=== PATIENT | female | born 1935 | race Caucasian/White ===

== ENCOUNTER 2016-08-01 16:00 | Outpatient (CLI) | payer MEDICARE, OTHER | END 2016-08-01 16:01 | disposition home or self-care (01) | DX: M51.36 Other intervertebral disc degeneration, lumbar region (principal); M47.816 Spondylosis without myelopathy or radiculopathy, lumbar region; M43.16 Spondylolisthesis, lumbar region; M48.54XA Collapsed vertebra, not elsewhere classified, thoracic region, initial encounter for fracture ==

== ENCOUNTER 2016-09-17 13:23 | Outpatient (CLI) | payer MEDICARE, OTHER | END 2016-09-17 13:24 | DX: R30.0 Dysuria (principal) ==

== ENCOUNTER 2016-11-11 11:40 | Outpatient (CLI) | payer MEDICARE, OTHER | END 2016-11-11 11:41 | disposition home or self-care (01) | LOC: LAB.R 11:40 | PROVIDERS: ATTEND Internal Medicine | DX: N30.00 Acute cystitis without hematuria (principal) | CPT/HCPCS: 87077; 87086 ==

== ENCOUNTER 2017-04-30 14:32 | Outpatient (CLI) | payer MEDICARE, OTHER ==
[2017-04-30 13:40] LABS: BASOPHILS # (AUTO) 0.1 10^3/uL (0.0-0.1); BASOPHILS % (AUTO) 1.5 %; EOSINOPHILS # (AUTO) 0.2 10^3/uL (0.0-0.7); EOSINOPHILS % (AUTO) 3.6 %; HCT - HEMATOCRIT 38.9 % (37.0-47.0); HGB - HEMOGLOBIN 13.1 g/dL (12.0-16.0); LYMPHOCYTES # (AUTO) 1.4 10^3/uL (1.5-3.5); LYMPHOCYTES % (AUTO) 29.2 %; MEAN CORPUSCULAR HEMOGLOBIN 30.9 pg (27.0-31.0); MEAN CORPUSCULAR HGB CONC 33.7 g/dL (32.0-36.0); MEAN CORPUSCULAR VOLUME 91.7 fL (81.0-99.0); MEAN PLATELET VOLUME 9.2 fL (7.9-10.8); MONOCYTES # (AUTO) 0.5 10^3/uL (0.0-1.0); NEUTROPHILS # (AUTO) 2.7 10^3/uL (1.5-6.6); NEUTROPHILS % (AUTO) 54.7 %; RED BLOOD COUNT 4.24 10^6/uL (4.20-5.40); RED CELL DISTRIBUTION WIDTH 13.7 % (12.0-15.0); UNCORRECTED WHITE BLOOD COUNT 4.9 x10^3/uL; WHITE BLOOD COUNT 4.9 x10^3/uL (4.8-10.8)
[2017-04-30 13:44] LABS: ALBUMIN/GLOBULIN RATIO 1.2 (1.0-2.2); BILIRUBIN,TOTAL 0.8 mg/dL (0.2-1.0); CALCIUM 9.7 mg/dL (8.5-10.3); CREATININE 0.9 mg/dL (0.4-1.0); POTASSIUM 4.1 mmol/L (3.5-5.0); TOTAL PROTEIN 6.9 g/dL (6.7-8.2)
== END 2017-04-30 14:33 | disposition home or self-care (01) ==
LOC: LAB.R 14:32
PROVIDERS: ATTEND Internal Medicine
DX: K21.9 Gastro-esophageal reflux disease without esophagitis (principal); M19.049 Primary osteoarthritis, unspecified hand; Z79.899 Other long term (current) drug therapy; E03.9 Hypothyroidism, unspecified
CPT/HCPCS: 80053; 84443; 85025

== ENCOUNTER 2017-06-03 11:49 | Emergency (ER) | payer MEDICARE, OTHER ==
--- NOTE | 2017-06-03 13:36 | ED Physician Documentation ---
History of Present Illness - Stated complaint Stated Complaint: DIZZY,NO BALANCE,R ARM ACHE--LAST NIGHT - Chief complaint Chief Complaint: Neuro - History obtained from History obtained from: Patient - History of Present Illness Timing: Last night Pain level max: 2 Pain level now: 0 Improved by: rest Worsened by: standing up - Additonal information Additional information: Patient is an 81-year-old female who presents to the emergency department for lightheadedness last night. She states she slipped out of her chair and felt lightheaded for approximately 30 seconds, resolved when she sat back down in the chair. She then walked down to the library to do her exercises and felt "slightly off balance". Did her exercises including multiple times standing on one leg without any difficulty. She then went to bed and slept for 8 hours, states that this is longer than she normally sleeps. She also states that she had some right shoulder pain this morning, which is not unusual for her, but the arm felt heavy. She also states that she clenches her teeth and that her jaw was sore this morning. Had no chest pain. No shortness of breath. Currently is asymptomatic. She also states that her right eye has an astigmatism in it and she is noticing it more today than usual. No other visual changes. No loss of vision. Review of Systems Ten Systems: 10 systems reviewed and negative Constitutional: denies: Fever, Chills Eyes: denies: Photophobia, Discharge, Irritation Ears: denies: Ear pain Nose: denies: Rhinorrhea / runny nose, Congestion Throat: denies: Sore throat Cardiac: denies: Chest pain / pressure, Palpitations Respiratory: denies: Dyspnea, Cough, Wheezing GI: denies: Abdominal Pain, Nausea, Vomiting, Diarrhea Skin: denies: Rash Musculoskeletal: denies: Neck pain, Back pain Neurologic: denies: Generalized weakness, Focal weakness, Numbness, Confused, Altered mental status, Headache, Head injury, LOC PD PAST MEDICAL HISTORY - Past Medical History Past Medical History: Yes Respiratory: Pneumonia GI: GERD Psych: Depression Musculoskeletal: Osteoarthritis, Osteoporosis - Past Surgical History Past Surgical History: Yes General: 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, 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 - Present Medications Home Medications: Ambulatory Orders Medication Instructions Recorded Confirmed Aspirin Chewable [[place] DAILY 06/03/17 Aspirin] Bupropion HCl [Bupropion HCl Sr] DAILY 06/03/17 Levothyroxine [Synthroid] DAILY 06/03/17 Raloxifene [Evista] DAILY 06/03/17 - Allergies Allergies/Adverse Reactions: Allergies Allergy/AdvReac Type Severity Reaction Status Date / Time codeine Allergy Unknown Verified 06/03/17 11:59 mercury (elemental) Allergy Rash Verified 06/03/17 11:58 - Social History Does the pt smoke?: No Smoking Status: Never smoker Does the pt drink ETOH?: No Does the pt have substance abuse?: No - Immunizations Immunizations are current?: Yes - POLST Patient has POLST: No PD ED PE NORMAL - Vitals Vital signs reviewed: Yes - General General: Alert and oriented X 3, No acute distress, Well developed/nourished - HEENT HEENT: PERRL, EOMI, Ears normal, Moist mucous membranes, Pharynx benign - Neck Neck: Supple, no meningeal sign, No bony TTP, No JVD, No bruit - Cardiac Cardiac: RRR, Strong equal pulses - Respiratory Respiratory: No respiratory distress, Clear bilaterally - Abdomen Abdomen: Normal bowel sounds, Soft, Non tender, Non distended - Back Back: No spinal TTP - Derm Derm: Warm and dry, No rash - Extremities Extremities: No edema, No calf tenderness / cord - Neuro Neuro: Alert and oriented X 3, marketing representative 2-12 intact, No motor deficit, No sensory deficit, Normal speech, Other (normal finger to nose. normal heel toe walk, normal romberg. ) - Psych Psych: Normal mood, Normal affect Results - Vitals Vitals: Vital Signs - 24 hr 06/03/17 06/03/17 12:04 15:06 Temperature 36.7 C Heart Rate 71 70 Respiratory 20 12 Rate Blood Pressure 142/72 H 162/69 H O2 Saturation 98 100 Oxygen O2 Source Room air - EKG (time done) 1222 Rate: Rate (enter#) (66) Rhythm: NSR [place]: Normal Intervals: Normal [place] QRS: Normal Ischemia: Normal ST segments - Labs Labs: Laboratory Tests 06/03/17 06/03/17 06/03/17 13:04 13:04 13:04 WBC 5.3 RBC 4.48 Hgb 13.8 Hct 41.1 MCV 91.6 MCH 30.9 MCHC 33.7 RDW 13.8 Plt Count 204 MPV 8.7 Neut # 2.9 Lymph # 1.6 [place] # 0.5 Eos # 0.1 Baso # 0.2 H Absolute Nucleated RBC 0.00 Nucleated RBC % 0.0 Sodium 138 Potassium 4.3 Chloride 104 Carbon Dioxide 30 Anion Gap 4.0 L BUN 19 Creatinine 0.9 Estimated GFR (MDRD) 60 L Glucose 80 Calcium 9.8 Total Bilirubin 0.6 AST 19 ALT 14 Alkaline Phosphatase 40 L Troponin I < 0.04 Total Protein 7.5 Albumin 4.3 Globulin 3.2 Albumin/Globulin Ratio 1.3 Lipase 25 Urine Color Urine Clarity Urine pH Ur Specific [place] Urine Protein Urine Glucose (UA) Urine Ketones Urine Occult Blood Urine Nitrite Urine Bilirubin Urine Urobilinogen Ur Leukocyte Esterase Ur Microscopic Review Urine Culture Comments 06/03/17 14:00 WBC RBC Hgb Hct MCV MCH MCHC RDW Plt Count MPV Neut # Lymph # [place] # Eos # Baso # Absolute Nucleated RBC Nucleated RBC % Sodium Potassium Chloride Carbon Dioxide Anion Gap BUN Creatinine Estimated GFR (MDRD) Glucose Calcium Total Bilirubin AST ALT Alkaline Phosphatase Troponin I Total Protein Albumin Globulin Albumin/Globulin Ratio Lipase Urine Color YELLOW Urine Clarity CLEAR Urine pH 7.0 Ur Specific [place] 1.010 Urine Protein NEGATIVE Urine Glucose (UA) NEGATIVE Urine Ketones NEGATIVE Urine Occult Blood NEGATIVE Urine Nitrite NEGATIVE Urine Bilirubin NEGATIVE Urine Urobilinogen 0.2 (NORMAL) Ur Leukocyte Esterase NEGATIVE Ur Microscopic Review NOT INDICATED Urine Culture Comments NOT INDICATED - Rads (name of study) head CT Radiology: Prelim report reviewed, EMP read contemporaneously, See rad report ( No acute intracranial abnormality) PD MEDICAL DECISION MAKING - ED course Complexity details: reviewed results, re-evaluated patient, considered differential, d/w patient ED course: Patient is an 81-year-old female with lightheadedness last night, asymptomatic today. Normal cerebellar test. No evidence of posterior circulation stroke. No acute findings on EKG, head CT or laboratory testing. Asymptomatic here. We will have her follow-up with her doctor for further evaluation and care. Does not seem to be related to an ischemic event at this time. Patient counseled regarding signs and symptoms for which I believe and urgent re- evaluation would be necessary. Patient with good understanding of and agreement to plan and is comfortable going home at this time This document was made in part using voice recognition software. While efforts are made to proofread this document, sound alike and grammatical errors may occur. Departure - Departure Disposition: 01 Home, Self Care Clinical Impression: Lightheaded Condition: Good Instructions: ED Dizziness UKO Follow-Up: Narciso Tavera MD [Primary Care Provider] - Within 1 week Comments: Follow up with your doctor for further care. Return if you worsen. Discharge Date/Time: 06/03/17 15:13 NIHSS - Time Time: 13:00 - Level of Consciousness Level of consciousness: (0) Alert, Keenly responsive LOC Questions: (0) Answers both Q's correct LOC Commands: (0) Performs both correctly - Gaze Best Gaze: (0) Normal - Visual Visual: (0) No loss - Facial Palsy Facial Palsy: (0) Normal, symmetrical movement - Motor Arms (both separate) Motor Arm (right): (0) No drift Motor Arm (left): (0) No drift - Motor Legs (both separate) Motor Leg (right): (0) No drift Motor Leg (left): (0) No drift - Limb Ataxia Limb Ataxia: (0) Absent - Sensory Sensory: (0) Normal - Best Language Best Language: (0) No aphasia - Dysarthria Dysarthria: (0) Normal - Extinction and Inattention (formally neg Extinction and inattention: (0) No abnormality - Total Score/Results Total Score/Result: 0
[2017-06-03 13:48] LABS: BASOPHILS # (AUTO) 0.2 10^3/uL (0.0-0.1); BASOPHILS % (AUTO) 2.9 %; EOSINOPHILS # (AUTO) 0.1 10^3/uL (0.0-0.7); EOSINOPHILS % (AUTO) 2.7 %; HGB - HEMOGLOBIN 13.8 g/dL (12.0-16.0); LYMPHOCYTES # (AUTO) 1.6 10^3/uL (1.5-3.5); LYMPHOCYTES % (AUTO) 29.6 %; MEAN CORPUSCULAR HEMOGLOBIN 30.9 pg (27.0-31.0); MEAN CORPUSCULAR HGB CONC 33.7 g/dL (32.0-36.0); MEAN CORPUSCULAR VOLUME 91.6 fL (81.0-99.0); MEAN PLATELET VOLUME 8.7 fL (7.9-10.8); MONOCYTES # (AUTO) 0.5 10^3/uL (0.0-1.0); NEUTROPHILS # (AUTO) 2.9 10^3/uL (1.5-6.6); NEUTROPHILS % (AUTO) 54.8 %; PLT - PLATELET COUNT 204 10^3/uL (130-450); RED BLOOD COUNT 4.48 10^6/uL (4.20-5.40); RED CELL DISTRIBUTION WIDTH 13.8 % (12.0-15.0); WHITE BLOOD COUNT 5.3 x10^3/uL (4.8-10.8)
[2017-06-03 13:59] LABS: ALBUMIN 4.3 g/dL (3.2-5.5); ALBUMIN/GLOBULIN RATIO 1.3 (1.0-2.2); BILIRUBIN,TOTAL 0.6 mg/dL (0.2-1.0); CALCIUM 9.8 mg/dL (8.5-10.3); CREATININE 0.9 mg/dL (0.4-1.0); TOTAL PROTEIN 7.5 g/dL (6.7-8.2)
[2017-06-03 14:12] LABS: BILIRUBIN,URINE NEGATIVE (NEGATIVE); GLUCOSE, URINE (UA) NEGATIVE (NEGATIVE); KETONES,URINE (UA) NEGATIVE (NEGATIVE); LEUKOCYTE ESTERASE, URINE NEGATIVE (NEGATIVE); NITRITE,URINE NEGATIVE (NEGATIVE); OCCULT BLOOD,URINE NEGATIVE (NEGATIVE); PROTEIN,URINE NEGATIVE (NEGATIVE); UROBILINOGEN,URINE 0.2 (NORMAL) E.U./dL (NORMAL)
[2017-06-03 14:15] LABS: CLARITY,URINE CLEAR (CLEAR)
--- NOTE | 2017-06-03 14:33 | CT Report ---
EXAM: CT HEAD EXAM DATE: 06/03/2017 02:18 PM. CLINICAL HISTORY: Lightheaded last night, off balance. COMPARISON: None. TECHNIQUE: Multiaxial CT images were obtained from the foramen magnum to the vertex. Reformats: Coron al. IV contrast: None. In accordance with CT protocol optimization, one or more of the following dose reduction techniques w ere utilized for this exam: automated exposure control, adjustment of mA and/or KV based on patient s ize, or use of iterative reconstructive technique. FINDINGS: Parenchyma: No intraparenchymal hemorrhage. No evidence of mass, midline shift, or CT findings of acu te infarction. Mar-white differentiation is distinct. Diffuse chronic microangiopathic white matter changes are evident. Extraaxial Spaces: Normal for age. No subdural or epidural collections identified. Ventricles: The ventricles and cortical sulci are enlarged, consistent with age-related tissue loss. Sinuses and orbits: Imaged paranasal sinuses, orbits, and mastoids show no significant abnormality. Bones: No evidence of fracture or calvarial defect. Other: None. IMPRESSION: Generalized age-related cortical atrophic changes without evidence of acute intracranial abnormality. [facility] Referring Provider Line: [phone] SITE ID: [id number]
[2017-06-03 15:07] VITALS: BP 162/69
== END 2017-06-03 15:13 | disposition home or self-care (01) ==
LOC: ED 11:49
DX: R42 Dizziness and giddiness (principal); R94.31 Abnormal electrocardiogram [ECG] [EKG]; Z79.82 Long term (current) use of aspirin
CPT/HCPCS: 36415; 70450; 80053; 81001; 81003; 83690; 84484; 85025; 87086; 93005; 99283; 99284

== ENCOUNTER 2017-10-28 08:00 | Outpatient (CLI) | payer MEDICARE, OTHER ==
[2017-10-28 17:42] LABS: BASOPHILS # (AUTO) 0.1 10^3/uL (0.0-0.1); BASOPHILS % (AUTO) 1.3 %; EOSINOPHILS # (AUTO) 0.1 10^3/uL (0.0-0.7); EOSINOPHILS % (AUTO) 2.6 %; HGB - HEMOGLOBIN 13.3 g/dL (12.0-16.0); LYMPHOCYTES # (AUTO) 1.5 10^3/uL (1.5-3.5); LYMPHOCYTES % (AUTO) 27.6 %; MEAN CORPUSCULAR HEMOGLOBIN 30.4 pg (27.0-31.0); MEAN CORPUSCULAR HGB CONC 33.1 g/dL (32.0-36.0); MEAN CORPUSCULAR VOLUME 91.8 fL (81.0-99.0); MEAN PLATELET VOLUME 9.3 fL (7.9-10.8); MONOCYTES # (AUTO) 0.6 10^3/uL (0.0-1.0); MONOCYTES % (AUTO) 11.8 %; NEUTROPHILS # (AUTO) 3.1 10^3/uL (1.5-6.6); NEUTROPHILS % (AUTO) 56.7 %; PLT - PLATELET COUNT 210 10^3/uL (130-450); RED BLOOD COUNT 4.38 10^6/uL (4.20-5.40); WHITE BLOOD COUNT 5.5 x10^3/uL (4.8-10.8)
[2017-10-28 17:55] LABS: ALBUMIN 3.8 g/dL (3.2-5.5); ALBUMIN/GLOBULIN RATIO 1.1 (1.0-2.2); BILIRUBIN,TOTAL 0.4 mg/dL (0.2-1.0); CALCIUM 9.8 mg/dL (8.5-10.3); CREATININE 0.9 mg/dL (0.4-1.0); TOTAL PROTEIN 7.4 g/dL (6.7-8.2)
== END 2017-10-28 08:01 | disposition home or self-care (01) ==
LOC: LAB.R 08:00
PROVIDERS: ATTEND Internal Medicine
DX: R10.9 Unspecified abdominal pain (principal)
CPT/HCPCS: 80053; 83690; 85025

== ENCOUNTER 2017-11-04 13:31 | Outpatient (CLI) | payer MEDICARE, OTHER ==
[2017-11-04] MEDS ORDERED: IOPAMIDOL-300 50 ML VIAL ONE (13:51)
[2017-11-04] MEDS ORDERED: IOPAMIDOL-300 100 ML VIAL ONE (13:51)
--- NOTE | 2017-11-04 15:35 | CT Report ---
Procedure Date: 11/04/2017 Accession Number: [id number] / [id number] Procedure: CT - Abdomen/Pelvis W/ CPT Code: FULL RESULT: EXAM: Abdomen/Pelvis W/ 11/04/2017 3:12 PM CLINICAL INDICATION: Abdominal pain COMPARISON: None TECHNIQUE: Axial CT images of the abdomen and pelvis were obtained with 100 mL Isovue 300 intravenously as well as oral contrast FINDINGS: Limited evaluation of the lung bases is unremarkable. ABDOMEN: There is a hemangioma in the right lobe of the liver. The spleen, pancreas, kidneys and adrenal glands are unremarkable. The gallbladder is not dilated. No bowel dilatation, free gas, or free fluid is present. No abdominal adenopathy. Pelvis: The patient is status post hysterectomy. No pelvic adenopathy or free fluid is present. Osseous structures demonstrate degenerative changes. IMPRESSION: Postoperative changes. Incidental hepatic hemangioma. No evident etiology for patient's pain. CT DOSE REDUCTION STATEMENT In accordance with CT protocol optimization, one or more of the following were used for this exam: automated exposure control, adjustment of mA and or KV based on patient size, or use of iterative reconstructive technique.
[2017-11-04] MEDS ORDERED: IOPAMIDOL-300 50 ML VIAL PO ONE (16:05)
[2017-11-04] MEDS ORDERED: IOPAMIDOL-300 100 ML VIAL IVP ONE (16:05)
== END 2017-11-04 13:32 | disposition home or self-care (01) ==
LOC: DI 13:31
PROVIDERS: ATTEND Internal Medicine
DX: R10.9 Unspecified abdominal pain (principal)
CPT/HCPCS: 74177; Q9967

== ENCOUNTER 2018-05-10 15:00 | Outpatient (CLI) | payer MEDICARE, OTHER | END 2018-05-10 23:59 | disposition home or self-care (01) | LOC: LAB.R 15:00 | PROVIDERS: ATTEND Nurse Practitioner Primary Care | DX: N30.00 Acute cystitis without hematuria (principal) | CPT/HCPCS: 87077; 87086; 87181 ==

== ENCOUNTER 2018-05-27 11:29 | Outpatient (CLI) | payer MEDICARE, OTHER ==
[2018-05-27 12:24] LABS: BASOPHILS # (AUTO) 0.1 10^3/uL (0.0-0.1); BASOPHILS % (AUTO) 1.9 %; EOSINOPHILS # (AUTO) 0.2 10^3/uL (0.0-0.7); EOSINOPHILS % (AUTO) 3.4 %; HGB - HEMOGLOBIN 13.2 g/dL (12.0-16.0); LYMPHOCYTES # (AUTO) 1.2 10^3/uL (1.5-3.5); LYMPHOCYTES % (AUTO) 26.8 %; MEAN CORPUSCULAR HEMOGLOBIN 31.5 pg (27.0-31.0); MEAN CORPUSCULAR HGB CONC 34.4 g/dL (32.0-36.0); MEAN CORPUSCULAR VOLUME 91.5 fL (81.0-99.0); MEAN PLATELET VOLUME 8.9 fL (7.9-10.8); MONOCYTES # (AUTO) 0.5 10^3/uL (0.0-1.0); MONOCYTES % (AUTO) 10.8 %; NEUTROPHILS # (AUTO) 2.6 10^3/uL (1.5-6.6); NEUTROPHILS % (AUTO) 57.1 %; PLT - PLATELET COUNT 200 10^3/uL (130-450); RED BLOOD COUNT 4.19 10^6/uL (4.20-5.40); WHITE BLOOD COUNT 4.6 x10^3/uL (4.8-10.8)
[2018-05-27 12:40] LABS: ALBUMIN 3.9 g/dL (3.2-5.5); ALBUMIN/GLOBULIN RATIO 1.4 (1.0-2.2); BILIRUBIN,TOTAL 0.8 mg/dL (0.2-1.0); CALCIUM 9.6 mg/dL (8.5-10.3); CREATININE 0.9 mg/dL (0.4-1.0); TOTAL PROTEIN 6.7 g/dL (6.7-8.2)
== END 2018-05-27 11:30 | disposition home or self-care (01) ==
LOC: LAB 11:29
PROVIDERS: ATTEND Internal Medicine
DX: R03.0 Elevated blood-pressure reading, without diagnosis of hypertension (principal); F32.9 Major depressive disorder, single episode, unspecified; E03.9 Hypothyroidism, unspecified
CPT/HCPCS: 36415; 80053; 84443; 85025

== ENCOUNTER 2018-08-19 10:00 | Outpatient (CLI) | payer MEDICARE, OTHER | END 2018-08-19 10:01 | LOC: LAB.R 10:00 | PROVIDERS: ATTEND Family Medicine | DX: N39.0 Urinary tract infection, site not specified (principal) | CPT/HCPCS: 87086 ==

== ENCOUNTER 2018-09-06 13:28 | Outpatient (CLI) | payer MEDICARE, OTHER ==
--- NOTE | 2018-09-07 10:40 | Mammography Report ---
Reason: ANNUAL MAMMOGRAM Procedure Date: 09/06/2018 Accession Number: [id number] / [id number] Procedure: [facility] - Screening Mammo Dig Bilat CPT Code: FULL RESULT: EXAM: Screening Mammo Dig Bilat DATE: 09/06/2018 2:34 PM CLINICAL HISTORY: Screening examination. TECHNIQUE: (B) - Bilateral CC and MLO views were obtained. COMPARISON: 12/26/2013, 09/29/2012 PARENCHYMAL PATTERN: (A) - The breasts demonstrate scattered fibroglandular densities bilaterally. FINDINGS: There are no suspicious masses, calcifications, or areas of distortion. IMPRESSION: Negative examination. BI-RADS category 1. RECOMMENDATION: (ANNUAL) - Recommend routine annual screening mammography. BI-RADS CATEGORY: (1) - Negative. STANDARD QUALIFYING STATEMENTS: 1. This examination was not reviewed with the aid of Computer-Aided Detection (CAD). 2. A negative or benign imaging report should not preclude biopsy if clinically suspicious findings are present. 3. Dense breasts may obscure an underlying neoplasm. 4. This examination was reviewed without the aid of 3D breast imaging (tomosynthesis).
== END 2018-09-06 13:29 | disposition home or self-care (01) ==
LOC: DI 13:28
DX: Z12.31 Encounter for screening mammogram for malignant neoplasm of breast (principal)
CPT/HCPCS: 77067

== ENCOUNTER 2019-02-07 11:59 | Outpatient (CLI) | payer MEDICARE, OTHER ==
[2019-02-07] MEDS ORDERED: GADOBUTROL 7.5 MMOL/7.5 ML VIAL ONE (13:53)
[2019-02-07] MEDS ORDERED: GADOBUTROL 7.5 MMOL/7.5 ML VIAL IVP ONE (14:12)
--- NOTE | 2019-02-07 14:24 | MRI Report ---
Reason: BALANCE PROBLEMS, TREMOR Procedure Date: 02/07/2019 Accession Number: [id number] / [id number] Procedure: MRI - Brain W/WO CPT Code: FULL RESULT: EXAM: MRI BRAIN WITHOUT AND WITH CONTRAST EXAM DATE: 02/07/2019 02:00 PM. CLINICAL HISTORY: 83-year-old presenting with bilateral hand weakness, worsening imbalance, and tremor. Evaluate for intracranial pathology. COMPARISON: MR cervical spine 02/07/2019. TECHNIQUE: Multiplanar, multisequence T1-weighted and fluid-sensitive MR sequences of the brain were performed before and after administration of intravenous contrast. Sequences optimized for routine evaluation. Other: None. IV Contrast: 7 cc Gadavist. FINDINGS: Brain Volume: Normal for age. Parenchyma: No acute hemorrhage, mass, or infarct. Mild to moderate bilateral areas of T2/FLAIR signal hyperintensity seen. No abnormal enhancement. Ventricles/Cisterns: No hydrocephalus. No abnormal extra-axial fluid collection or hemorrhage. Orbits: Changes of bilateral lens replacement. Sella Turcica: The pituitary gland, cavernous sinuses, suprasellar cistern and optic chiasm are unremarkable. IAC: Symmetric and unremarkable. Vasculature: Normal signal flow void is seen in the major arterial structures at the skull base. The dural sinuses are patent and enhance normally. Sinuses: No acute sinus disease. Bones: No focal pathologic-appearing marrow signal changes. Other: None. IMPRESSION: 1. No definite acute intracranial pathology seen; specifically, no acute infarct, acute intracranial hemorrhage, mass, hydrocephalus, or midline shift. No abnormal postcontrast enhancement. 2. Mild to moderate bilateral areas of white matter hypoattenuation seen that are nonspecific but may represent sequela of chronic small-vessel ischemic disease. [facility]
--- NOTE | 2019-02-07 14:30 | MRI Report ---
Reason: BALANCE PROBLEMS, TREMOR Procedure Date: 02/07/2019 Accession Number: [id number] / [id number] Procedure: MRI - Cervical Spine W/O CPT Code: FULL RESULT: EXAM: MRI CERVICAL SPINE WITHOUT CONTRAST EXAM DATE: 02/07/2019 12:58 PM. CLINICAL HISTORY: 83-year-old presenting with worsening bilateral hand weakness, imbalance, and tremors. Evaluate for cervical pathology. COMPARISONS: MR brain 02/07/2019. TECHNIQUE: Multiplanar, multisequence T1-weighted and fluid-sensitive sequences of the cervical spine without contrast. Other: None. FINDINGS: Neurologic Structures: The visualized posterior fossa structures are unremarkable. No signal abnormality in the visualized spinal cord. Alignment: Straightening of the normal cervical lordosis. There is 1-2 mm of posterior subluxation of C3 on C4, C4 on C5, and C5 on C6. Bone Marrow: No acute fracture seen. There are [place] type I and type II changes seen throughout the cervical spine likely degenerative in nature. No definite mass or mass-like edema seen. No definite abnormal marrow-replacing lesion. Interspace Levels/Facets: There is mild endplate degenerative change with mild to moderate loss of disk height and disk desiccation seen throughout much of the cervical spine. C1-C2: Unremarkable. C2-C3: Bilateral arthritic facet disease. No spinal canal stenosis. No definite neural foraminal narrowing. C3-C4: Small posterior disk osteophyte complex. Bilateral uncovertebral osteophyte and arthritic facet disease. Mild spinal canal stenosis. Mild right and moderate left neural foraminal narrowing. C4-C5: Small broad-based disk osteophyte complex. Bilateral uncovertebral osteophyte and arthritic facet disease, greater on the right. Mild to moderate spinal canal stenosis. Moderate to severe right and mild left neural foraminal narrowing. C5-C6: Small to moderate broad-based disk osteophyte complex. Bilateral uncovertebral osteophyte and arthritic facet disease. Mild to moderate spinal canal stenosis. Moderate right and mild to moderate left neural foraminal narrowing. C6-C7: Small broad-based disk osteophyte complex. Bilateral uncovertebral osteophyte and arthritic facet disease greater on the right. Mild spinal canal stenosis. Moderate to severe right and mild to moderate left neural foraminal narrowing. C7-T1: Bilateral arthritic facet disease. No spinal canal stenosis. Minimal bilateral neural foraminal narrowing. Musculature: Normal. No edema or fatty atrophy. Other: The paravertebral and prevertebral soft tissues are normal. IMPRESSION: 1. Straightening of the normal cervical lordosis. 2. Multilevel degenerative changes. C3-C4: Mild spinal canal stenosis. Mild right and moderate left neural foraminal narrowing. C4-C5: Mild to moderate spinal canal stenosis. Moderate to severe right and mild left neural foraminal narrowing. C5-C6: Mild to moderate spinal canal stenosis. Moderate right and mild to moderate left neural foraminal narrowing. C6-C7: Mild spinal canal stenosis. Moderate to severe right and mild to moderate left neural foraminal narrowing. [facility]
== END 2019-02-07 12:00 | disposition home or self-care (01) ==
LOC: DI 11:59
PROVIDERS: ATTEND Psychiatry & Neurology Neurology
DX: R26.89 Other abnormalities of gait and mobility (principal); R25.1 Tremor, unspecified; M47.812 Spondylosis without myelopathy or radiculopathy, cervical region; M48.02 Spinal stenosis, cervical region
CPT/HCPCS: 36415; 70553; 72141; 82565; A9585

== ENCOUNTER 2019-10-20 15:46 | Outpatient (CLI) | payer MEDICARE, OTHER | END 2019-10-20 15:47 | disposition home or self-care (01) | LOC: COV 15:46 | PROVIDERS: ATTEND Internal Medicine Cardiovascular Disease | DX: R00.2 Palpitations (principal) | CPT/HCPCS: 81599 ==

== ENCOUNTER 2019-12-13 07:00 | Outpatient (CLI) | payer MEDICARE, OTHER | END 2019-12-13 23:59 | disposition home or self-care (01) | LOC: LAB.R 07:00 | PROVIDERS: ATTEND Family Medicine | DX: R35.0 Frequency of micturition (principal) | CPT/HCPCS: 87077; 87086; 87181 ==

== ENCOUNTER 2020-01-16 08:00 | Outpatient (CLI) | payer MEDICARE, OTHER ==
[2020-01-16 18:37] LABS: BILIRUBIN,URINE NEGATIVE (NEGATIVE); GLUCOSE, URINE (UA) NEGATIVE (NEGATIVE); KETONES,URINE (UA) NEGATIVE (NEGATIVE); LEUKOCYTE ESTERASE, URINE SMALL (NEGATIVE); NITRITE,URINE POSITIVE (NEGATIVE); OCCULT BLOOD,URINE NEGATIVE (NEGATIVE); PROTEIN,URINE NEGATIVE (NEGATIVE); UROBILINOGEN,URINE 1 (NORMAL) E.U./dL (NORMAL)
[2020-01-16 18:45] LABS: CLARITY,URINE HAZY (CLEAR)
[2020-01-16 19:25] LABS: BACTERIA,URINE Many /HPF (None Seen); CRYSTALS,URINE 11-25 Ca Oxalate /LPF; RBC,URINE 0-5 /HPF (0-5); SQUAMOUS EPITHELIAL CELL,UR NONE SEEN (<= Few); WBC CLUMPS,URINE PRESENT
== END 2020-01-16 23:59 | disposition home or self-care (01) ==
LOC: LAB.R 08:00
PROVIDERS: ATTEND Nurse Practitioner
DX: R35.0 Frequency of micturition (principal); N95.2 Postmenopausal atrophic vaginitis
CPT/HCPCS: 81001; 87077; 87086; 87181

== ENCOUNTER 2020-02-15 10:48 | Outpatient (CLI) | payer MEDICARE, OTHER ==
[2020-02-15 11:04] LABS: BILIRUBIN,URINE NEGATIVE (NEGATIVE); GLUCOSE, URINE (UA) NEGATIVE (NEGATIVE); KETONES,URINE (UA) NEGATIVE (NEGATIVE); LEUKOCYTE ESTERASE, URINE NEGATIVE (NEGATIVE); NITRITE,URINE NEGATIVE (NEGATIVE); OCCULT BLOOD,URINE NEGATIVE (NEGATIVE); PH,URINE 7.5 PH (5.0-7.5); PROTEIN,URINE NEGATIVE (NEGATIVE); UROBILINOGEN,URINE 0.2 (NORMAL) E.U./dL (NORMAL)
[2020-02-15 11:11] LABS: BACTERIA,URINE None Seen /HPF (None Seen); CLARITY,URINE CLEAR (CLEAR); RBC,URINE None Seen /HPF (0-5); SQUAMOUS EPITHELIAL CELL,UR NONE SEEN (<= Few)
== END 2020-02-15 10:49 | disposition home or self-care (01) ==
LOC: LAB 10:48
PROVIDERS: ATTEND Nurse Practitioner
DX: R35.0 Frequency of micturition (principal); N95.2 Postmenopausal atrophic vaginitis
CPT/HCPCS: 81001; 87086

== ENCOUNTER 2020-02-26 13:01 | Outpatient (CLI) | payer MEDICARE, OTHER ==
--- NOTE | 2020-02-27 14:46 | Mammography Report ---
BILATERAL DIGITAL SCREENING MAMMOGRAM 3D/2D: 02/26/2020 CLINICAL: Routine screening. Family history of breast cancer. Comparison is made to exams dated: 09/06/2018 mammogram, 01/15/2014 mammogram, and 09/29/2012 mammogram - [facility]. The tissue of both breasts is heterogeneously dense. This may lower the sensitivity of mammography. No significant masses, calcifications, or other findings are seen in either breast. There has been no significant interval change. IMPRESSION: NEGATIVE There is no mammographic evidence of malignancy. A 1 year screening mammogram is recommended. This exam was interpreted at Station ID: [id number]. NOTE: For mammograms, a report in lay terms will be sent to the patient. Approximately 15% of breast malignancies will not be visualized mammographically. In the management of a palpable breast mass, a negative mammogram must not discourage biopsy of a clinically suspicious lesion. Electronically Signed By: Micki marcus/william:02/27/2020 08:39:25 ACR BI-RADS Category 1: Negative [id number] PARENCHYMAL PATTERN: (D) - The breast(s) demonstrate(s) heterogeneously dense fibroglandular william frazier. BI-RADS CATEGORY: (1) - 1 RECOMMENDATION: (ANNUAL) - Recommend routine annual screening mammography. [id number] 1 year screening LATERALITY: (B)
== END 2020-02-26 13:02 | disposition home or self-care (01) ==
LOC: DI 13:01
DX: Z12.31 Encounter for screening mammogram for malignant neoplasm of breast (principal); Z80.3 Family history of malignant neoplasm of breast
CPT/HCPCS: 77063; 77067

== ENCOUNTER 2020-07-25 13:01 | Outpatient (CLI) | payer MEDICARE, OTHER ==
[2020-07-25] MEDS ORDERED: IOPAMIDOL-300 50 ML VIAL ONE (13:18)
[2020-07-25] MEDS ORDERED: IOVERSOL 320 100 ML VIAL IVP ONE ×2 (13:18→16:35)
[2020-07-25] MEDS ORDERED: IOPAMIDOL-300 50 ML VIAL PO ONE (16:34)
--- NOTE | 2020-07-25 17:15 | CT Report ---
PROCEDURE: Abdomen/Pelvis W INDICATIONS: LLQ ABD PAIN, DIVERTICULITIS OF SIGMOID COLON CONTRAST: IV CONTRAST: Optiray 320 ml: 100 PO CONTRAST: Isovue 300 ml50 TECHNIQUE: After the administration of oral and intravenous contrast, 5 mm thick sections acquired from the diap hragms to the symphysis. 5 mm thick coronal and sagittal reformats were acquired. For radiation dos e reduction, the following was used: automated exposure control, adjustment of mA and/or kV accordin g to patient size. COMPARISON: CT abdomen and pelvis 11/04/2017. FINDINGS: Image quality: Excellent. ABDOMEN: Lung bases: Left lower lobe pulmonary nodule measuring 1.2 x 0.9 cm, (09/04), previously 1.1 x 0.7 cm. This may be slightly increased in size compared to 2018. Right lower lobe pulmonary nodule measuring 0.3 cm, (4/6), appears unchanged. Heart size is normal. Solid organs: Liver and spleen are normal in size. Right lobe lesion measuring 2.9 x 2.4 cm, (3/15), previously 2.5 x 2.2 cm. Portions of this lesion appear to demonstrate peripheral nodular discontinu ous enhancement. This is most compatible with a benign hemangioma. Gallbladder is unremarkable. Elroy iary system is non dilated. Pancreas enhances normally. No adrenal nodules. Kidneys demonstrate no rmal size and enhancement, without hydronephrosis. Peritoneum and bowel: Bowel loops demonstrate normal wall thickness and caliber. No significant dive rticulosis appreciated. No inflammatory change identified. The appendix is not seen. No free fluid or air. Nodes and vessels: No retroperitoneal or mesenteric adenopathy by size criteria. Small calcified ret roperitoneal lymph nodes, unchanged. Small mesenteric calcification. Aorta and inferior vena cava are normal in size. Mild calcified metastatic plaque. Miscellaneous: No ventral hernias. PELVIS: Genitourinary: Bladder wall thickness is normal. Uterus is absent. Miscellaneous: No inguinal hernias or adenopathy. Bones: No suspicious bony lesions. No vertebral body compression fractures. IMPRESSION: 1. No acute abnormality identified. No free fluid. No hydronephrosis. 2. Left lower lobe pulmonary nodule measuring mean diameter 1.1 cm. This may be slightly enlarged com pared to 2018. It is difficult to exclude indolent neoplasm. If more remote prior comparisons are inez ilable, recommend comparison. This could also be further evaluated with PET/CT. CT of the chest to ev aluate the upper lungs could also be helpful. 3. Right lobe of the liver lesion is likely not significant change in size compared to [address] compatible with a benign hemangioma. Reviewed by: Grzegorz Grayson MD on 07/25/2020 5:13 PM PST Approved by: Grzegorz Grayson MD on 07/25/2020 5:13 PM PST Station ID: [id number]
[2020-07-25 18:54] LABS: CREATININE 0.9 mg/dL (0.4-1.0)
== END 2020-07-25 13:02 | disposition home or self-care (01) ==
LOC: LAB 13:01
PROVIDERS: ATTEND Internal Medicine Gastroenterology
DX: R10.32 Left lower quadrant pain (principal); K57.30 Diverticulosis of large intestine without perforation or abscess without bleeding; R91.1 Solitary pulmonary nodule; K76.89 Other specified diseases of liver
CPT/HCPCS: 36415; 74177; 82565; Q9967

== ENCOUNTER 2020-08-15 08:00 | Outpatient (CLI) | payer MEDICARE, OTHER ==
[2020-08-15 18:05] LABS: BASOPHILS # (AUTO) 0.1 10^3/uL (0.0-0.1); BASOPHILS % (AUTO) 0.8 %; EOSINOPHILS # (AUTO) 0.2 10^3/uL (0.0-0.7); EOSINOPHILS % (AUTO) 2.5 %; HCT - HEMATOCRIT 40.5 % (37.0-47.0); HGB - HEMOGLOBIN 13.2 g/dL (12.0-16.0); LYMPHOCYTES # (AUTO) 1.8 10^3/uL (1.5-3.5); LYMPHOCYTES % (AUTO) 25.3 %; MEAN CORPUSCULAR HEMOGLOBIN 30.9 pg (27.0-31.0); MEAN CORPUSCULAR HGB CONC 32.6 g/dL (32.0-36.0); MEAN CORPUSCULAR VOLUME 94.8 fL (81.0-99.0); MEAN PLATELET VOLUME 10.6 fL (7.9-10.8); MONOCYTES # (AUTO) 0.6 10^3/uL (0.0-1.0); MONOCYTES % (AUTO) 8.9 %; NEUTROPHILS # (AUTO) 4.5 10^3/uL (1.5-6.6); NEUTROPHILS % (AUTO) 62.1 %; PLT - PLATELET COUNT 261 10^3/uL (130-450); RED BLOOD COUNT 4.27 10^6/uL (4.20-5.40); RED CELL DISTRIBUTION WIDTH 14.2 % (12.0-15.0); WHITE BLOOD COUNT 7.2 x10^3/uL (4.8-10.8)
[2020-08-15 18:32] LABS: THYROID STIMULATING HORMONE 1.54 uIU/mL (0.34-5.60)
[2020-08-15 18:34] LABS: FREE T3 2.83 pg/mL (2.5-3.9); FREE T4 (FREE THYROXINE) 1.21 ng/dL (0.58-1.64)
[2020-08-15 18:35] LABS: ALBUMIN 3.8 g/dL (3.2-5.5); ALBUMIN/GLOBULIN RATIO 1.2 (1.0-2.2); BILIRUBIN,TOTAL 0.9 mg/dL (0.2-1.0); CALCIUM 10.2 mg/dL (8.5-10.3); CREATININE 0.9 mg/dL (0.4-1.0); POTASSIUM 4.2 mmol/L (3.5-5.0); TOTAL PROTEIN 7.1 g/dL (6.7-8.2)
== END 2020-08-15 23:59 | disposition home or self-care (01) ==
LOC: LAB.WCP 08:00
PROVIDERS: ATTEND Family Medicine
DX: E03.9 Hypothyroidism, unspecified (principal); M54.16 Radiculopathy, lumbar region; R03.0 Elevated blood-pressure reading, without diagnosis of hypertension; G25.0 Essential tremor; K21.9 Gastro-esophageal reflux disease without esophagitis; R35.0 Frequency of micturition; N39.0 Urinary tract infection, site not specified; Z87.440 Personal history of urinary (tract) infections; M19.042 Primary osteoarthritis, left hand; M19.041 Primary osteoarthritis, right hand
CPT/HCPCS: 36415; 80053; 84439; 84443; 84481; 85025; 87077; 87086; 87181

== ENCOUNTER 2020-08-23 16:56 | Emergency (ER) | payer MEDICARE, OTHER ==
[2020-08-23] MEDS ORDERED: SODIUM CHLORIDE 0.9% 1,000 ML IV STA (17:52)
--- NOTE | 2020-08-23 17:55 | ED Physician Documentation ---
History of Present Illness - Stated complaint Stated Complaint: DIZZY/OFF BALANCE - Chief complaint Chief Complaint: General - History obtained from History obtained from: Patient - History of Present Illness Timing: Today Pain level max: 0 Pain level now: 0 - Additonal information Additional information: Patient is an 84-year-old female who is currently being treated with cephalexin for a UTI. She states that this morning she was at the computer, did not eat or drink, when she stood up from the computer she felt off balance and lightheaded. The room was not spinning. There was no numbness or tingling of her extremities. There was no loss of motor control. Lasted for a few minutes. Seems to be better when she is sitting or lying down, recurs when she stands up. Resolves after a minute or so with standing. She states she rarely drinks water and was concerned that she may be dehydrated. She tried to call her PCP but he is not working for the next several days, so they told her to come here. No headache. No chest pain. 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 - Present Medications Home Medications: Ambulatory Orders Medication Instructions Recorded Confirmed Aspirin Chewable [St Korey DAILY 06/03/17 Aspirin] Levothyroxine [Synthroid] DAILY 06/03/17 Raloxifene [Evista] DAILY 06/03/17 buPROPion HCl [Bupropion HCl Sr] DAILY 06/03/17 - Allergies Allergies/Adverse Reactions: Allergies Allergy/AdvReac Type Severity Reaction Status Date / Time codeine Allergy Unknown Verified 08/23/20 17:00 mercury (elemental) Allergy Rash Verified 08/23/20 17:00 - Social History Does the pt smoke?: No Smoking Status: Never smoker Does the pt drink ETOH?: No Does the pt have substance abuse?: No - Immunizations Immunizations are current?: Yes - POLST Patient has POLST: No PD ED PE NORMAL - Vitals Vital signs reviewed: Yes - General General: Alert and oriented X 3, No acute distress - HEENT HEENT: Atraumatic, PERRL, Moist mucous membranes - Neck Neck: Supple, no meningeal sign - Cardiac Cardiac: RRR, Strong equal pulses - Respiratory Respiratory: No respiratory distress, Clear bilaterally - Abdomen Abdomen: Soft, Non tender, Non distended - Back Back: No spinal TTP - Derm Derm: Warm and dry, No rash - Extremities Extremities: No edema - Neuro Neuro: Alert and oriented X 3, car washer 2-12 intact, No motor deficit, No sensory deficit, Normal speech, Other (No nystagmus. Normal cerebellar test. Normal gait. She is transiently lightheaded when she first goes from lying to st anding. Negative Hallpike.) - Psych Psych: Normal mood, Normal affect Results - Vitals Vitals: Oxygen O2 Source Room air - EKG (time done) 1828 Rate: Rate (enter#) (65) Rhythm: NSR [place]: Normal Intervals: Normal AR QRS: Normal, LVH Ischemia: Normal ST segments - Labs Labs: Laboratory Tests 08/23/20 08/23/20 18:01 18:01 WBC 6.6 RBC 4.20 Hgb 13.2 Hct 39.9 MCV 95.0 MCH 31.4 H MCHC 33.1 RDW 13.9 Plt Count 246 MPV 9.7 Neut # (Auto) 4.0 Lymph # (Auto) 1.5 [place] # (Auto) 0.8 Eos # (Auto) 0.2 Baso # (Auto) 0.1 Absolute Nucleated RBC 0.00 Nucleated RBC % 0.0 Sodium 138 Potassium 4.2 Chloride 100 L Carbon Dioxide 30 Anion Gap 8.0 BUN 22 H Creatinine 0.9 Estimated GFR (MDRD) 60 L Glucose 96 Calcium 9.7 Total Bilirubin 0.6 AST 17 ALT 18 Alkaline Phosphatase 39 L Total Protein 7.0 Albumin 3.8 Globulin 3.2 Albumin/Globulin Ratio 1.2 PD MEDICAL DECISION MAKING - ED course Complexity details: reviewed results, re-evaluated patient, considered differential, d/w patient ED course: Patient appears to have been dehydrated. Feels better after IV fluids. Asymptomatic. Ambulating without difficulty. Normal neuro exam. No evidence of stroke. Normal cerebellar test. We will have her follow-up with her doctor for further care. Patient counseled regarding signs and symptoms for which I believe and urgent re-evaluation would be necessary. Patient with good understanding of and agreement to plan and is comfortable going home at this time This document was made in part using voice recognition software. While efforts are made to proofread this document, sound alike and grammatical errors may occur. Departure - Departure Disposition: 01 Home, Self Care Clinical Impression: Dehydration Condition: Good Instructions: ED Dehydration Follow-Up: Pierre Flower MD [Primary Care Provider] - Within 1 week Comments: Drink plenty of water at home. Follow-up with your doctor for further care. Return if you worsen. Discharge Date/Time: 08/23/20 20:06
[2020-08-23 18:06] LABS: BASOPHILS # (AUTO) 0.1 10^3/uL (0.0-0.1); BASOPHILS % (AUTO) 1.1 %; EOSINOPHILS # (AUTO) 0.2 10^3/uL (0.0-0.7); EOSINOPHILS % (AUTO) 2.7 %; HCT - HEMATOCRIT 39.9 % (37.0-47.0); HGB - HEMOGLOBIN 13.2 g/dL (12.0-16.0); LYMPHOCYTES # (AUTO) 1.5 10^3/uL (1.5-3.5); LYMPHOCYTES % (AUTO) 22.4 %; MEAN CORPUSCULAR HEMOGLOBIN 31.4 pg (27.0-31.0); MEAN CORPUSCULAR HGB CONC 33.1 g/dL (32.0-36.0); MEAN PLATELET VOLUME 9.7 fL (7.9-10.8); MONOCYTES # (AUTO) 0.8 10^3/uL (0.0-1.0); MONOCYTES % (AUTO) 12.2 %; NEUTROPHILS % (AUTO) 61.1 %; PLT - PLATELET COUNT 246 10^3/uL (130-450); RED CELL DISTRIBUTION WIDTH 13.9 % (12.0-15.0); WHITE BLOOD COUNT 6.6 x10^3/uL (4.8-10.8)
[2020-08-23 18:19] LABS: ALBUMIN 3.8 g/dL (3.2-5.5); ALBUMIN/GLOBULIN RATIO 1.2 (1.0-2.2); BILIRUBIN,TOTAL 0.6 mg/dL (0.2-1.0); CALCIUM 9.7 mg/dL (8.5-10.3); CREATININE 0.9 mg/dL (0.4-1.0); POTASSIUM 4.2 mmol/L (3.5-5.0)
[2020-08-23 19:21] VITALS: BP 150/65
--- OUTSIDE RECORDS SUMMARY | 2020-08-29 01:19 | EXTERNAL MEDICAL SUMMARY RPT | Continuity of Care Document ---
:1935 Demographics Phone Unavailable Preferred Language Unknown Marital Status Unknown [employer] Affiliation Unknown Race Unknown Ethnic Group Unknown Author Organization [facility] Address [address] [id number] Phone Social History date description facility [phone]
== END 2020-08-23 20:06 | disposition home or self-care (01) ==
LOC: ED 16:56
DX: E86.0 Dehydration (principal)
CPT/HCPCS: 36415; 80053; 85025; 93005; 96360; 99284

== ENCOUNTER 2020-10-31 16:18 | Outpatient (CLI) | payer MEDICARE, OTHER ==
--- NOTE | 2020-10-31 17:09 | XRAY Report ---
PROCEDURE: Lumbar Spine Complete INDICATIONS: LUMBAR RADICULOPATHY TECHNIQUE: 5 views of the lumbar spine were acquired. COMPARISON: None. FINDINGS: Bones: 5 [id number] vertebrae are present. There is mild leftward curvature. Multilevel mild t o moderate disc space narrowing is present. Severe foraminal narrowing is noted L3-4, L4-5 and modera te L5-S1. No vertebral body compression fractures. No suspicious bony lesions. There is an appearan ce of SI joint narrowing. Soft tissues: Overlying bowel gas pattern is normal. No suspicious soft tissue calcifications. IMPRESSION: Multilevel degenerative changes most severe from L4-5 through L5-S1. As clinically indic ated for further evaluation of potential nerve root compression, MRI may be obtained. Reviewed by: Betsy Crowe MD on 10/31/2020 5:08 PM PDT Approved by: Betsy Crowe MD on 10/31/2020 5:08 PM PDT Station ID: [id number]
== END 2020-10-31 16:19 | disposition home or self-care (01) ==
LOC: DI 16:18 → LAB 16:19
PROVIDERS: ATTEND Family Medicine
DX: M47.816 Spondylosis without myelopathy or radiculopathy, lumbar region (principal); M47.817 Spondylosis without myelopathy or radiculopathy, lumbosacral region; R03.0 Elevated blood-pressure reading, without diagnosis of hypertension; G25.0 Essential tremor; K21.9 Gastro-esophageal reflux disease without esophagitis; M19.049 Primary osteoarthritis, unspecified hand; E03.9 Hypothyroidism, unspecified; R35.0 Frequency of micturition
CPT/HCPCS: 36415; 84443; 87077; 87086; 87181

== ENCOUNTER 2021-04-02 08:00 | Outpatient (CLI) | payer MEDICARE, OTHER ==
[2021-04-02 16:34] LABS: BILIRUBIN,URINE NEGATIVE (NEGATIVE); GLUCOSE, URINE (UA) NEGATIVE (NEGATIVE); KETONES,URINE (UA) NEGATIVE (NEGATIVE); LEUKOCYTE ESTERASE, URINE SMALL (NEGATIVE); NITRITE,URINE NEGATIVE (NEGATIVE); OCCULT BLOOD,URINE NEGATIVE (NEGATIVE); PROTEIN,URINE NEGATIVE (NEGATIVE); UROBILINOGEN,URINE 0.2 (NORMAL) E.U./dL (NORMAL)
[2021-04-02 16:35] LABS: CLARITY,URINE HAZY (CLEAR)
[2021-04-02 16:43] LABS: RBC,URINE 0-5 /HPF (0-5); SQUAMOUS EPITHELIAL CELL,UR RARE Squamous (<= Few)
[2021-04-02 16:44] LABS: BACTERIA,URINE Moderate /HPF (None Seen)
== END 2021-04-02 23:59 | disposition home or self-care (01) ==
LOC: LAB.WCP 08:00
PROVIDERS: ATTEND Family Medicine
DX: R39.15 Urgency of urination (principal); R35.0 Frequency of micturition
CPT/HCPCS: 81001; 87077; 87086; 87181

== ENCOUNTER 2021-07-11 16:25 | Inpatient (IN) | payer MEDICARE, OTHER ==
--- NOTE | 2021-07-11 17:01 | ED Physician Documentation ---
History of Present Illness - Stated complaint Stated Complaint: GLF/LT HIP PX - Chief complaint Chief Complaint: Trauma Ext - History obtained from History obtained from: Patient - History of Present Illness Timing: Today Pain level max: 6 Pain level now: 4 - Additonal information Additional information: Patient is an 85-year-old female with a history of Parkinson's disease who states that she was at home today walking when she lost her balance and fell onto the left hip. No pain initially but has gradually developed pain on the left hip. Worse with walking, better with rest. Does not use any assistive devices. Has not taken anything for pain. The pain is also worse with bending over. Currently she states the pain is mild. No head, neck, back pain. 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 - Present Medications Home Medications: Ambulatory Orders Medication Instructions Recorded Confirmed Aspirin Chewable [St Korey DAILY 06/03/17 Aspirin] Levothyroxine [Synthroid] DAILY 06/03/17 Raloxifene [Evista] DAILY 06/03/17 buPROPion HCl [Bupropion HCl Sr] DAILY 06/03/17 - Allergies Allergies/Adverse Reactions: Allergies Allergy/AdvReac Type Severity Reaction Status Date / Time codeine Allergy Unknown Verified 07/11/21 16:35 mercury (elemental) Allergy Rash Verified 07/11/21 16:35 Sulfa (Sulfonamide Allergy Hives Verified 07/11/21 16:35 Antibiotics) - Social History Does the pt smoke?: No Smoking Status: Never smoker Does the pt drink ETOH?: No Does the pt have substance abuse?: No - Immunizations Immunizations are current?: Yes - POLST Patient has POLST: No PD ED PE NORMAL - Vitals Vital signs reviewed: Yes - General General: Alert and oriented X 3, No acute distress - HEENT HEENT: Atraumatic, PERRL, Moist mucous membranes - Neck Neck: Supple, no meningeal sign, No bony TTP - Cardiac Cardiac: RRR, Strong equal pulses - Respiratory Respiratory: No respiratory distress, Clear bilaterally - Abdomen Abdomen: Soft, Non tender, Non distended - Back Back: No spinal TTP - Derm Derm: Warm and dry - Extremities Extremities: Other (Tender to palpation over the left hip, greater trochanter. Pain with internal and external rotation of the hip. Minimal pain with flexion of the hip. Neurovascularly intact.) - Neuro Neuro: Alert and oriented X 3 - Psych Psych: Normal mood, Normal affect Results - Vitals Vitals: Vital Signs - 24 hr 07/11/21 07/11/21 16:31 16:49 Temperature 36.4 C L Heart Rate 79 73 Respiratory 16 18 Rate Blood Pressure 153/79 H 155/67 H O2 Saturation 98 100 Oxygen O2 Source Room air - Rads (name of study) Left hip x-ray Radiology: Final report received, EMP read contemporaneously, See rad report PD MEDICAL DECISION MAKING - ED course Complexity details: reviewed results, re-evaluated patient, considered differential, d/w patient, d/w regulatory affairs consultant ED course: 85-year-old female with a history of Parkinson's disease presents after a fall onto the left hip. She has been walking on the hip throughout the day. Has an acute fracture through the subcapital region of the left femoral neck. Discussed the case with Dr. Cortez, orthopedics who recommends admission to the hospitalist service and he will plan on operating tomorrow. Discussed the case with Dr. Lorenzana, hospitalist who accepts This document was made in part using voice recognition software. While efforts are made to proofread this document, sound alike and grammatical errors may occur. IMPRESSION: Acute fracture through the subcapital region of left femoral neck. No dislocation. Bilateral hip joint osteoarthritis. No evidence of avascular necrosis. Departure - Departure Disposition: [facility] DC/Xfer Clinical Impression: Parkinsons disease Fractured femoral neck Qualifiers: Encounter type: initial encounter Fracture type: closed Laterality: left Qualified Code(s): S72.002A - Fracture of unspecified part of neck of left femur, initial encounter for closed fracture Condition: Good Discharge Date/Time: 07/11/21 18:59
--- NOTE | 2021-07-11 17:18 | XRAY Report ---
PROCEDURE: Hip w/Pelvis 2-3V LT INDICATIONS: fall, hip pain TECHNIQUE: AP pelvis with lateral view(s) of the left hip(s). COMPARISON: None. FINDINGS: Bones: There is suggestion of a nondisplaced or minimally displaced fracture involving subcapital re gion of left femoral neck. No dislocation. Bilateral hip joint osteophytic changes are seen. No evide nce of avascular necrosis of femoral head. Pelvic ring appears intact. No suspicious bony lesions. Soft tissues: The visualized bowel gas pattern is normal. No suspicious soft tissue calcifications. IMPRESSION: Acute fracture through the subcapital region of left femoral neck. No dislocation. Bilateral hip join t osteoarthritis. No evidence of avascular necrosis. Reviewed by: Larry Galarza MD on 07/11/2021 5:17 PM PST Approved by: Larry Galarza MD on 07/11/2021 5:17 PM PST Station ID: [id number]
[2021-07-11] MEDS ORDERED: ONDANSETRON ODT 4 MG TABLET TL PRN (17:57)
[2021-07-11] MEDS ORDERED: ONDANSETRON 4 MG/2 ML VIAL IVP PRN (17:57)
[2021-07-11] MEDS ORDERED: SODIUM CHLORIDE FLUSH 0.9% 10 ML SYRINGE IVP PRN (17:57)
--- NOTE | 2021-07-11 18:25 | HISTORY & PHYSICAL EXAMINATION ---
Chief Complaint - Chief Complaint Chief Complaint: Left hip pain History of Present Illness - Admitted From Admitted From:: Home - History Obtained From Records Reviewed: Yes History obtained from: Patient, ER Physician, EMR - History of Present Illness HPI Comment/Other: This is a 85-year-old female with a past medical history significant for hypot hyroidism, Parkinson's disease who presents today after a fall at home. She states that she fell this morning when walking to the bathroom and landed on her left hip. She denies any syncope or loss of consciousness. She was able to get up with the help of her but she noted she had some left hip pain. She was still able to ambulate so she did not think much of it. She went on with her day but noticed that she became more uncomfortable. She tried taking a nap but had difficulty doing so due to the pain. Her left hip pain is worse with movement and activity. It is predominant located over the medial aspect of the hip close to her groin. It is about a 4 out of 10. She reports no numbness or tingling. She states she is normally active. She does have Parkinson's disease but is not on any therapy for it as she did not find any improvement with prior therapies. She states she normally ambulates on her own. She denies any cardiac history including heart disease. She states she is able to go up a flight of stairs without chest pain. She states that she is always chronically short of breath due to history of sinusitis. She did have wisdom tooth removed yesterday and she is on amoxicillin 500 mg 3 times daily. In the emergency department, imaging revealed a left hip fracture. Given this, medicine was consulted for admission. We discussed goals of care and she would like to be a full code. 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 Her mother had a resting tremor. Living arrangement: At home Living Situation: With spouse/s.o. Social History Notes: She lives at home with her . She smoked briefly in her college years. She rarely drinks alcohol. - POLST Patient has POLST: No Meds/Allgy - Home Medications Home Medications: Ambulatory Orders Medication Instructions Recorded Confirmed Aspirin Chewable [St Korey DAILY 06/03/17 Aspirin] Levothyroxine [Synthroid] DAILY 06/03/17 Raloxifene [Evista] DAILY 06/03/17 buPROPion HCl [Bupropion HCl Sr] DAILY 06/03/17 - Allergies Allergies/Adverse Reactions: Allergies Allergy/AdvReac Type Severity Reaction Status Date / Time codeine Allergy Unknown Verified 07/11/21 16:35 mercury (elemental) Allergy Rash Verified 07/11/21 16:35 Sulfa (Sulfonamide Allergy Hives Verified 07/11/21 16:35 Antibiotics) Review of Systems - Constitutional Constitutional: reports: Chills. denies: Fever - Ears, Nose & Throat Ears, Nose & Throat: denies: Nasal discharge, Nasal congestion - Cardiovascular Cariovascular: denies: Chest pain, Edema, Syncope, Exertional dyspnea, Decr. exercise tolerance - Respiratory Respiratory: reports: SOB at rest, SOB with exertion. denies: Cough - Gastrointestinal Gastrointestinal: denies: Abdominal pain, Nausea, Vomiting - Musculoskeletal Musculoskeletal: reports: Limited range of motion, Joint pain - Integumentary Integumentary: denies: Rash - Neurological Neurological: reports: Abnormal gait, Other (Tremor.). denies: General weakness, Focal weakness, Numbness - Hematologic/Lymphatic Hematologic/Lymphatic: denies: Bleeding tendencies - All Other Systems All Other Systems: reports: Reviewed and negative Prior Level of Functionality: She is independent with her ADLs. Exam - Vital Signs Reviewed Vital Signs: Yes Vital Signs: Vital Signs x48h Temp Pulse Resp BP Pulse Ox 07/11/21 16:49 73 18 155/67 H 100 07/11/21 16:31 36.4 C L 79 16 153/79 H 98 - Physical Exam General Appearance: positive: No acute distress, Alert Eyes Bilateral: positive: Normal inspection, Conjunctivae nml ENT: positive: ENT inspection nml Neck: positive: Nml inspection Respiratory: positive: No respiratory distress. negative: Wheezes, Rales Cardiovascular: positive: Regular rate & rhythm. negative: Tachycardia Peripheral Pulses: positive: 2+ (Left dorsalis pedis.) Abdomen: positive: Non-tender, No distention. negative: Tenderness Skin: positive: Warm, Dry Extremities: positive: No pedal edema, Other (No obvious left hip deformity, erythema, edema. She is tender over the lateral aspect.) Neurologic/Psychiatric: negative: Disoriented to person, Disoriented to place Conclusion/Plan - Problem List (1) Fracture of femoral neck, left Conclusion/Plan: This is secondary to a mechanical fall. X-ray revealed a left femoral neck fracture. Should be n.p.o. at midnight for surgical intervention with orthopedic surgery tomorrow. Pain control with Tylenol and Toradol as needed. She prefers to hold off on narcotics given his allergy to codeine although she cannot recall what it is. Lovenox for DVT prophylaxis. PT and OT have been consulted. She will need a bisphosphonate 2 weeks after the fracture. (2) Pre-op evaluation Conclusion/Plan: She has no history of heart disease and she is able to function greater than 4 METS as she can walk a flight of stairs without chest pain. I have ordered an EKG for today but reviewing her prior EKG, it revealed a sinus rhythm. Her [place] perioperative risk is 0.9% for risk of myocardial infarction or cardiac arrest. As long as her EKG today does not show any significant abnormalities, she is medically optimized to proceed with surgical intervention. (3) Parkinsons disease Conclusion/Plan: Stable and at baseline. She will need physical therapy evaluation after surgical intervention as she will likely need SNF (4) Hypothyroidism Conclusion/Plan: Continue home Synthroid. (5) [place] teeth removed Conclusion/Plan: We will continue her amoxicillin as previously prescribed. - Lab Results Lab results reviewed: Yes - Diagnostic Imaging Results Diagnostic Imaging Results: positive: Final report reviewed Core Measures - Anticipated LOS I expect patient to be DC'd or transferred within 96 hours.: Yes - Issues Hospital Issues and Management Plan: 85-year-old female presents after mechanical fall and found to have a left hip fracture. She will be admitted for surgical intervention with orthopedic surgery tomorrow. - DVT/VTE - Prophylaxis VTE/DVT Device ordered at admit?: Yes VTE/DVT Prophylaxis med ordered at admit?: Yes
[2021-07-11 18:57] LABS: ALBUMIN 3.8 g/dL (3.2-5.5); ALBUMIN/GLOBULIN RATIO 1.2 (1.0-2.2); BILIRUBIN,TOTAL 1.1 mg/dL (0.2-1.0); CREATININE 0.9 mg/dL (0.4-1.0); POTASSIUM 4.3 mmol/L (3.5-5.0); TOTAL PROTEIN 6.9 g/dL (6.7-8.2)
[2021-07-11 19:16] LABS: BASOPHILS % (AUTO) 0.4 %; EOSINOPHILS # (AUTO) 0.1 10^3/uL (0.0-0.7); EOSINOPHILS % (AUTO) 1.7 %; HCT - HEMATOCRIT 39.1 % (37.0-47.0); HGB - HEMOGLOBIN 12.9 g/dL (12.0-16.0); LYMPHOCYTES # (AUTO) 0.6 10^3/uL (1.5-3.5); LYMPHOCYTES % (AUTO) 7.6 %; MEAN CORPUSCULAR HEMOGLOBIN 30.7 pg (27.0-31.0); MEAN CORPUSCULAR VOLUME 93.1 fL (81.0-99.0); MEAN PLATELET VOLUME 10.1 fL (7.9-10.8); MONOCYTES # (AUTO) 0.7 10^3/uL (0.0-1.0); MONOCYTES % (AUTO) 8.2 %; NEUTROPHILS # (AUTO) 6.7 10^3/uL (1.5-6.6); NEUTROPHILS % (AUTO) 81.9 %; PLT - PLATELET COUNT 204 10^3/uL (130-450); RED CELL DISTRIBUTION WIDTH 14.1 % (12.0-15.0); WHITE BLOOD COUNT 8.2 x10^3/uL (4.8-10.8)
[2021-07-11] MEDS: KETOROLAC 15 MG/ML VIAL IVP PRN (19:20)
[2021-07-11 19:45] LABS: B. PARAPERTUSSIS- RESP PCR PAN NOT DETECTED; B. PERTUSSIS- RESP PCR PANEL NOT DETECTED; C. PNEUMONIAE- RESP PCR PANEL NOT DETECTED; CORONAVIRUS 229E-RESP PCR NOT DETECTED; CORONAVIRUS HKU1-RESP PCR NOT DETECTED; CORONAVIRUS NL63-RESP PCR NOT DETECTED; CORONAVIRUS OC43-RESP PCR NOT DETECTED; HUMAN METAPNEUMOVIRUS NOT DETECTED; INFLUENZA A- RESP PCR PANEL NOT DETECTED; INFLUENZA B - RESP PCR PANEL NOT DETECTED; M. PNEUMONIAE- RESP PCR PANEL NOT DETECTED; PARAINFLUENZA VIRUS 1 NOT DETECTED; PARAINFLUENZA VIRUS 2 NOT DETECTED; PARAINFLUENZA VIRUS 3 NOT DETECTED; PARAINFLUENZA VIRUS 4 NOT DETECTED; RHINOVIRUS/ENTEROVIRUS NOT DETECTED; RSV- RESP PCR PANEL NOT DETECTED; SARS-CoV-2 -RESP PCR PANEL NOT DETECTED
[2021-07-11] MEDS: AMOXICILLIN 250 MG CAPSULE PO SCH (21:21)
[2021-07-11] MEDS: ACETAMINOPHEN 325 MG TABLET PO PRN (23:28)
[2021-07-11] MEDS: SODIUM CHLORIDE FLUSH 0.9% 10 ML SYRINGE IVP SCH (23:30)
[2021-07-12] MEDS: KETOROLAC 15 MG/ML VIAL IVP PRN ×2 (03:02→19:23)
[2021-07-12 05:50] LABS: BASOPHILS # (AUTO) 0.1 10^3/uL (0.0-0.1); BASOPHILS % (AUTO) 0.6 %; EOSINOPHILS # (AUTO) 0.3 10^3/uL (0.0-0.7); EOSINOPHILS % (AUTO) 3.5 %; HCT - HEMATOCRIT 34.7 % (37.0-47.0); HGB - HEMOGLOBIN 11.7 g/dL (12.0-16.0); LYMPHOCYTES # (AUTO) 1.2 10^3/uL (1.5-3.5); LYMPHOCYTES % (AUTO) 14.2 %; MEAN CORPUSCULAR HEMOGLOBIN 30.8 pg (27.0-31.0); MEAN CORPUSCULAR HGB CONC 33.7 g/dL (32.0-36.0); MEAN CORPUSCULAR VOLUME 91.3 fL (81.0-99.0); MEAN PLATELET VOLUME 10.3 fL (7.9-10.8); MONOCYTES # (AUTO) 0.8 10^3/uL (0.0-1.0); MONOCYTES % (AUTO) 9.5 %; NEUTROPHILS # (AUTO) 6.2 10^3/uL (1.5-6.6); NEUTROPHILS % (AUTO) 71.7 %; PLT - PLATELET COUNT 183 10^3/uL (130-450); WHITE BLOOD COUNT 8.6 x10^3/uL (4.8-10.8)
[2021-07-12 05:58] LABS: CALCIUM 8.9 mg/dL (8.5-10.3); CREATININE 0.9 mg/dL (0.4-1.0); POTASSIUM 3.8 mmol/L (3.5-5.0)
[2021-07-12] MEDS: AMOXICILLIN 250 MG CAPSULE PO SCH ×3 (06:25→21:58)
[2021-07-12] MEDS: SODIUM CHLORIDE FLUSH 0.9% 10 ML SYRINGE IVP SCH ×2 (08:30→19:23)
--- NOTE | 2021-07-12 08:33 | ANESTHESIA ---
Pre-Anesthesia VS, & Labs - Diagnosis left hip fracture - Procedure ORIF left hip, pinning Vital Signs: Temp Pulse Resp BP Pulse Ox 36.2 C L 68 18 132/53 H 92 07/12/21 08:08 07/12/21 08:08 07/12/21 08:08 07/12/21 08:08 07/12/21 08:08 Height: 5 ft 3 in Weight (kg): 72.5 kg Body Mass Index: 28.3 BMI Classification: Overweight - NPO >8 hours - Is Patient ?: No - Lab Results Current Lab Results: Laboratory Tests 07/12/21 05:25: Sodium 136, Potassium 3.8, Chloride 103, Carbon Dioxide 27, Anion Gap 6.0, BUN 23 H, Creatinine 0.9, Estimated GFR (MDRD) 60 L, Glucose 108 H, Calcium 8.9 07/12/21 05:25: WBC 8.6, RBC 3.80 L, Hgb 11.7 L, Hct 34.7 L, MCV 91.3, MCH 30.8, MCHC 33.7, RDW 14.0, Plt Count 183, MPV 10.3, Neut # (Auto) 6.2, Lymph # (Auto) 1.2 L, [place] # (Auto) 0.8, Eos # (Auto) 0.3, Baso # (Auto) 0.1, Absolute Nucleated RBC 0.00, Nucleated RBC % 0.0 07/11/21 19:11: WBC 8.2, RBC 4.20, Hgb 12.9, Hct 39.1, MCV 93.1, MCH 30.7, MCHC 33.0, RDW 14.1, Plt Count 204, MPV 10.1, Neut # (Auto) 6.7 H, Lymph # (Auto) 0.6 L, [place] # (Auto) 0.7, Eos # (Auto) 0.1, Baso # (Auto) 0.0, Absolute Nucleated RBC 0.00, Nucleated RBC % 0.0 07/11/21 18:27: Sodium 136, Potassium 4.3, Chloride 101, Carbon Dioxide 27, Anion Gap 8.0, BUN 25 H, Creatinine 0.9, Estimated GFR (MDRD) 60 L, Glucose 90, Calcium 10.0, Total Bilirubin 1.1 H, AST 19, ALT 18, Alkaline Phosphatase 52, Total Protein 6.9, Albumin 3.8, Globulin 3.1, Albumin/Globulin Ratio 1.2, Lipase 31 Fish Bones: 07/12/21 05:25 07/12/21 05:25 Home Medications and Allergies Active Medications Acetaminophen (Acetaminophen 325 Mg Tablet) 650 mg PO Q4HR PRN PRN Reason: Pain 1 to 4 Last Admin: 07/11/21 23:28 Dose: 650 mg Amoxicillin (Amoxicillin 250 Mg Capsule) 500 mg PO TID [facility] Last Admin: 07/12/21 06:25 Dose: 500 mg Enoxaparin Sodium (Enoxaparin 40 Mg/0.4 Ml Syringe) 40 mg SUBQ DAILY [facility] Ketorolac Tromethamine (Ketorolac 15 Mg/Ml Vial) 15 mg IVP Q6HR PRN PRN Reason: PAIN Stop: 07/16/21 18:26 Last Admin: 07/12/21 03:02 Dose: 15 mg Ondansetron HCl (Ondansetron Odt 4 Mg Tablet) 4 mg TL Q6HR PRN PRN Reason: Nausea / Vomiting Ondansetron HCl (Ondansetron 4 Mg/2 Ml Vial) 4 mg IVP Q6HR PRN PRN Reason: Nausea / Vomiting Sodium Chloride (Sodium Chloride Flush 0.9% 10 Ml Syringe) 10 ml IVP PRN PRN PRN Reason: NEEDED PER PROVIDER ORDERS Last Admin: 07/12/21 03:03 Dose: 10 ml Sodium Chloride (Sodium Chloride Flush 0.9% 10 Ml Syringe) 10 ml IVP 0100,0900,1700 [facility] Last Admin: 07/11/21 23:30 Dose: 10 ml Aspirin Chewable [St Korey Aspirin] DAILY 06/03/17 Levothyroxine [Synthroid] DAILY 06/03/17 Raloxifene [Evista] DAILY 06/03/17 buPROPion HCl [Bupropion HCl Sr] DAILY 06/03/17 Allergies/Adverse Reactions: Allergies Allergy/AdvReac Type Severity Reaction Status Date / Time codeine Allergy Unknown Verified 07/11/21 16:35 mercury (elemental) Allergy Rash Verified 07/11/21 16:35 Sulfa (Sulfonamide Allergy Hives Verified 07/11/21 16:35 Antibiotics) Anes History & Medical History - Medical History Pulmonary: reports: Pneumonia Gastrointestinal: reports: GERD Neuro: reports: Parkinson's Musculoskeletal: reports: Osteoarthritis, Osteoporosis Endocrine/Autoimmune: reports: HyPOthyroidism Smoking Status: Never smoker - Surgical History General: reports: 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, Other Eyes Ears Nose Throat (EENT): reports: Tonsil/Adenoidectomy Gynecologic: reports: section Exam General: Alert, Oriented x3 Dental: WNL Mouth Opening: Greater than 4 Fingerbreadths Mallampati classification: III Thyromental Distance: greater than 6 cm Respiratory: Lungs clear Cardiovascular: Regular rate Plan Anesthesia Type: Spinal, Fascia Iliaca Block Consent for Procedure(s) Verified and Reviewed: Yes Code Status: Attempt Resuscitation ASA classification: 2-Mild systemic disease Is this case an emergency?: No
--- NOTE | 2021-07-12 08:42 | PROVIDER PROGRESS NOTE ---
Subjective - Prog Note Date Prog Note Date: 07/12/21 Prog Note Time: 09:15 - Subjective Pt reports feeling: No change Subjective: Patient reports that she is feeling well this morning. She denies pain, says she has not felt any pain since administration of pain medications. Reports that she mostly felt pain at fracture site when ambulating. She reports that she slept well and is well rested. She denies chest pain, shortness of breath, dizziness, nausea or abdominal pain. She denies fever, cough or recent illness. She has a history of sinusitis and feels slightly congested but reports that this is baseline for her. She spoke with the surgeon and anesthesia this morning and feels all of her questions about the surgery today were answered. Current Medications - Current Medications Current Medications: Active Medications Acetaminophen (Acetaminophen 325 Mg Tablet) 650 mg PO Q4HR PRN PRN Reason: Pain 1 to 4 Last Admin: 07/11/21 23:28 Dose: 650 mg Amoxicillin (Amoxicillin 250 Mg Capsule) 500 mg PO TID [facility] Last Admin: 07/12/21 06:25 Dose: 500 mg Ketorolac Tromethamine (Ketorolac 15 Mg/Ml Vial) 15 mg IVP Q6HR PRN PRN Reason: PAIN Stop: 07/16/21 18:26 Last Admin: 07/12/21 03:02 Dose: 15 mg Ondansetron HCl (Ondansetron Odt 4 Mg Tablet) 4 mg TL Q6HR PRN PRN Reason: Nausea / Vomiting Ondansetron HCl (Ondansetron 4 Mg/2 Ml Vial) 4 mg IVP Q6HR PRN PRN Reason: Nausea / Vomiting Sodium Chloride (Sodium Chloride Flush 0.9% 10 Ml Syringe) 10 ml IVP PRN PRN PRN Reason: NEEDED PER PROVIDER ORDERS Last Admin: 07/12/21 03:03 Dose: 10 ml Sodium Chloride (Sodium Chloride Flush 0.9% 10 Ml Syringe) 10 ml IVP 0100,0900,1700 [facility] Last Admin: 07/11/21 23:30 Dose: 10 ml Aspirin Chewable [St Korey Aspirin] DAILY 06/03/17 Levothyroxine [Synthroid] DAILY 06/03/17 Raloxifene [Evista] DAILY 06/03/17 buPROPion HCl [Bupropion HCl Sr] DAILY 06/03/17 Objective - Vital Signs/Intake & Output Vital Signs: Vital Signs x48h Temp Pulse Resp BP Pulse Ox 07/12/21 08:39 91 L 07/12/21 08:08 36.2 C L 68 18 132/53 H 92 Intake & Output: Intake & Output 07/09/21 07/10/21 07/11/21 07/12/21 23:59 23:59 23:59 23:59 Intake Total 350 Output Total 250 550 Balance 100 -550 - Objective General Appearance: positive: No acute distress, Alert, Other (Well appearing female who appears stated age, semi-shafer in bed reading a book.) Eyes Bilateral: positive: Normal inspection Neck: positive: Nml inspection, No JVD, Trachea midline Respiratory: positive: Chest non-tender, No respiratory distress, Breath sounds nml Cardiovascular: positive: Regular rate & rhythm. negative: Tachycardia Peripheral Pulses: 2+ Radial (R), 2+ Radial (L), 2+ Dorsalis pedis (R), 2+ Dorsalis pedis (L) Abdomen: positive: Non-tender, Nml bowel sounds, No distention Skin: positive: Color nml, Warm, Dry Extremities: positive: Nml appearance, No pedal edema, Other (No obvious deformity on left lower extremity. Skin intact. Neurovasularly intact distal to injury.). negative: Full ROM (ROM limited in left lower extremity.) Neurologic/Psychiatric: positive: Oriented x3, Sensation nml, Other (mild tremor, baseline due to Parkinson's) - Lab Results Fish Bones: 07/12/21 05:25 07/12/21 05:25 Other Labs: Lab Results x24hrs 07/12/21 07/12/21 07/11/21 Range/Units 05:25 05:25 19:11 WBC 8.6 8.2 (4.8-10.8) x10^3/uL RBC 3.80 L 4.20 (4.20-5.40) 10^6/uL Hgb 11.7 L 12.9 (12.0-16.0) g/dL Hct 34.7 L 39.1 (37.0-47.0) % MCV 91.3 93.1 (81.0-99.0) fL MCH 30.8 30.7 (27.0-31.0) pg MCHC 33.7 33.0 (32.0-36.0) g/dL RDW 14.0 14.1 (12.0-15.0) % Plt Count 183 204 (130-450) 10^3/uL MPV 10.3 10.1 (7.9-10.8) fL Neut # (Auto) 6.2 6.7 H (1.5-6.6) 10^3/uL Lymph # (Auto) 1.2 L 0.6 L (1.5-3.5) 10^3/uL [place] # (Auto) 0.8 0.7 (0.0-1.0) 10^3/uL Eos # (Auto) 0.3 0.1 (0.0-0.7) 10^3/uL Baso # (Auto) 0.1 0.0 (0.0-0.1) 10^3/uL Absolute Nucleated RBC 0.00 0.00 x10^3/uL Nucleated RBC % 0.0 0.0 /100WBC Sodium 136 (135-145) mmol/L Potassium 3.8 (3.5-5.0) mmol/L Chloride 103 (101-111) mmol/L Carbon Dioxide 27 (21-32) mmol/L Anion Gap 6.0 (6-13) BUN 23 H (6-20) mg/dL Creatinine 0.9 (0.4-1.0) mg/dL Estimated GFR (MDRD) 60 L (>89) Glucose 108 H (70-100) mg/dL Calcium 8.9 (8.5-10.3) mg/dL Total Bilirubin (0.2-1.0) mg/dL AST (10-42) IU/L ALT (10-60) IU/L Alkaline Phosphatase (42-121) IU/L Total Protein (6.7-8.2) g/dL Albumin (3.2-5.5) g/dL Globulin (2.1-4.2) g/dL Albumin/Globulin Ratio (1.0-2.2) Lipase (22-51) U/L Nasal Adenovirus (PCR) Nasal B. parapertussis DNA (PCR) Nasal Coronavir 229E PCR Nasal Coronavir HKU1 PCR Nasal Coronavir NL63 PCR Nasal Coronavir OC43 PCR Nasal Enterovir/Rhinovir PCR Nasal Influenza B PCR Nasal Influenza A PCR Nasal Parainfluen 1 PCR Nasal Parainfluen 2 PCR Nasal Parainfluen 3 PCR Nasal Parainfluen 4 PCR Nasal RSV (PCR) Nasal B.pertussis DNA PCR Nasal C.pneumoniae (PCR) Dante Human Metapneumo PCR Nasal M.pneumoniae (PCR) Nasal SARS-CoV-2 (PCR) 07/11/21 07/11/21 Range/Units 18:27 18:27 WBC (4.8-10.8) x10^3/uL RBC (4.20-5.40) 10^6/uL Hgb (12.0-16.0) g/dL Hct (37.0-47.0) % MCV (81.0-99.0) fL MCH (27.0-31.0) pg MCHC (32.0-36.0) g/dL RDW (12.0-15.0) % Plt Count (130-450) 10^3/uL MPV (7.9-10.8) fL Neut # (Auto) (1.5-6.6) 10^3/uL Lymph # (Auto) (1.5-3.5) 10^3/uL [place] # (Auto) (0.0-1.0) 10^3/uL Eos # (Auto) (0.0-0.7) 10^3/uL Baso # (Auto) (0.0-0.1) 10^3/uL Absolute Nucleated RBC x10^3/uL Nucleated RBC % /100WBC Sodium 136 (135-145) mmol/L Potassium 4.3 (3.5-5.0) mmol/L Chloride 101 (101-111) mmol/L Carbon Dioxide 27 (21-32) mmol/L Anion Gap 8.0 (6-13) BUN 25 H (6-20) mg/dL Creatinine 0.9 (0.4-1.0) mg/dL Estimated GFR (MDRD) 60 L (>89) Glucose 90 (70-100) mg/dL Calcium 10.0 (8.5-10.3) mg/dL Total Bilirubin 1.1 H (0.2-1.0) mg/dL AST 19 (10-42) IU/L ALT 18 (10-60) IU/L Alkaline Phosphatase 52 (42-121) IU/L Total Protein 6.9 (6.7-8.2) g/dL Albumin 3.8 (3.2-5.5) g/dL Globulin 3.1 (2.1-4.2) g/dL Albumin/Globulin Ratio 1.2 (1.0-2.2) Lipase 31 (22-51) U/L Nasal Adenovirus (PCR) NOT DETECTED Nasal B. parapertussis DNA (PCR) NOT DETECTED Nasal Coronavir 229E PCR NOT DETECTED Nasal Coronavir HKU1 PCR NOT DETECTED Nasal Coronavir NL63 PCR NOT DETECTED Nasal Coronavir OC43 PCR NOT DETECTED Nasal Enterovir/Rhinovir PCR NOT DETECTED Nasal Influenza B PCR NOT DETECTED Nasal Influenza A PCR NOT DETECTED Nasal Parainfluen 1 PCR NOT DETECTED Nasal Parainfluen 2 PCR NOT DETECTED Nasal Parainfluen 3 PCR NOT DETECTED Nasal Parainfluen 4 PCR NOT DETECTED Nasal RSV (PCR) NOT DETECTED Nasal B.pertussis DNA PCR NOT DETECTED Nasal C.pneumoniae (PCR) NOT DETECTED Dante Human Metapneumo PCR NOT DETECTED Nasal M.pneumoniae (PCR) NOT DETECTED Nasal SARS-CoV-2 (PCR) NOT DETECTED Sepsis Event Note (H) - Evaluation Current Stage of Sepsis: Ruled out Assessment/Plan - Problem List (1) Fracture of femoral neck, left Impression: This is secondary to a mechanical fall. X-ray revealed a left femoral neck fracture. NPO since midnight. Plan for orthopedic surgery today. Pain control with Tylenol and Toradol as needed. She prefers to hold off on narcotics given his allergy to codeine although she cannot recall what it is. Lovenox held today for surgery. Will put on aspirin after procedure for DVT prophylaxis. PT and OT have been consulted and will see her after surgery, likely tomorrow. She will need a bisphosphonate 2 weeks after the fracture. (2) Pre-op evaluation Impression: She has no history of heart disease and she is able to function greater than 4 METS as she can walk a flight of stairs without chest pain. EKG shows sinus rhythm, consistent with her previous EKGs. Her [place] perioperative risk is 0.9% for risk of myocardial infarction or cardiac arrest. She has no history of lung, kidney, liver or bleeding issues. She is medically optimized to proceed with surgical intervention. (3) Hypothyroidism Impression: Continue usual home Synthroid. Last TSH 1.13 11/12. (4) Parkinsons disease Impression: Stable and at baseline. She will need physical therapy evaluation after surgical intervention as she will likely need SNF (5) [place] teeth removed Impression: We will continue her amoxicillin as previously prescribed.
[2021-07-12] MEDS ORDERED: fentaNYL 100 MCG/2 ML VIAL ONE (08:54)
[2021-07-12] MEDS ORDERED: PROPOFOL 200 MG/20 ML VIAL IVP ONE ×2 (08:54→10:53)
[2021-07-12] MEDS ORDERED: SODIUM CHLORIDE 0.9% 10 ML VIAL IVP ONE ×2 (08:58→10:45)
[2021-07-12] MEDS ORDERED: KETAMINE 500 MG/10 ML VIAL ONE (08:58)
[2021-07-12] MEDS ORDERED: ENOXAPARIN 40 MG/0.4 ML SYRINGE SUBQ SCH (09:00)
[2021-07-12] MEDS ORDERED: MORPHINE 2 MG/ML CARPUJECT IVP PRN (09:04)
[2021-07-12] MEDS ORDERED: HYDROmorphone 0.5 MG/0.5 ML SYRINGE IVP PRN (09:04)
[2021-07-12] MEDS ORDERED: ePHEDrine 50 MG/ML VIAL IVP PRN (09:04)
[2021-07-12] MEDS ORDERED: ATROPINE ABBOJECT 1 MG/10 ML SYRINGE IVP PRN (09:04)
[2021-07-12] MEDS ORDERED: NALOXONE 0.4 MG/ML VIAL IVP PRN (09:04)
[2021-07-12] MEDS ORDERED: fentaNYL 100 MCG/2 ML VIAL IVP PRN (09:04)
[2021-07-12] MEDS ORDERED: ONDANSETRON 4 MG/2 ML VIAL IVP PRN (09:04)
--- NOTE | 2021-07-12 09:05 | HISTORY & PHYSICAL EXAMINATION ---
HPI - History Obtained From History obtained from: Patient Exam limitations: No limitations - History of Present Illness HPI Comment/Other: [place] 85[place]year[place] She is primarily an indoor ambulator and generally does not use a walking aid. She has had a history of Parkinson's disease for several years. She feels that this has contributed to difficulties with walking balance. She was doing relatively well until yesterday. She was at home and had just risen to go to the bathroom, lost her balance while walking and fell onto her left side. She was able to get up with the help of her and put some weight on the left leg. She did not feel her pain was severe until a few hours later when the pain increased about her left hip and groin. She denies chest pain, shortness of breath, dizziness, syncope or loss of consciousness associated with her fall yesterday. Because of the increasing pain, she was brought to the emergency room where she was evaluated and found to have a fracture of her left hip. She denies previous problems with her hip or joints. She spends a fair amount of time at the [employer] doing [employer]. Her pain appears to be well controlled at this time. She denies history of deep venous thrombosis, pulmonary embolism, myocardial infarction or stroke. She is a non- smoker and rarely uses alcohol. She denies history of cancer or diabetes. PMH/PSH - Past Medical History Respiratory: positive: Pneumonia Neuro: positive: Parkinson's Endocrine/Autoimmune: positive: HyPOthyroidism GI: positive: GERD Psych: positive: Depression Musculoskeletal: positive: Osteoarthritis, Osteoporosis - Past Surgical History General: positive: 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, Other /[employer]EL[employer]: positive: section HEENT: positive: Tonsil/Adenoidectomy Social & Family Hx - Social History Does the pt smoke?: No Smoking Status: Never smoker Does the pt drink ETOH?: No Does the pt have substance abuse?: No - POLST Patient has POLST: No Meds/Allgy - Home Medications Home Medications: Ambulatory Orders Medication Instructions Recorded Confirmed Aspirin Chewable [St Korey DAILY 06/03/17 Aspirin] Levothyroxine [Synthroid] DAILY 06/03/17 Raloxifene [Evista] DAILY 06/03/17 buPROPion HCl [Bupropion HCl Sr] DAILY 06/03/17 - Allergies Allergies/Adverse Reactions: Allergies Allergy/AdvReac Type Severity Reaction Status Date / Time codeine Allergy Unknown Verified 07/11/21 16:35 mercury (elemental) Allergy Rash Verified 07/11/21 16:35 Sulfa (Sulfonamide Allergy Hives Verified 07/11/21 16:35 Antibiotics) Exam - Vital Signs Vital Signs: Vital Signs x48h Temp Pulse Resp BP Pulse Ox 07/12/21 08:39 91 L 07/12/21 08:08 36.2 C L 68 18 132/53 H 92 - Physical Exam General Appearance: positive: No acute distress Respiratory: positive: Chest non-tender, No respiratory distress Cardiovascular: positive: Regular rate & rhythm Peripheral Pulses: positive: 2+ Skin: positive: Color nml Neurologic/Psychiatric: positive: Oriented x3 Comments/Other: Extremities: She moves all extremities well with exception of the left. She has limited and painful movement of her left hip. There is no clinical deformity to left leg. The skin is intact over left hip. There is no sign of mass or hematoma about left hip. Her neurovascular status is intact to left leg. Results - Lab Results Fish Bones: 07/12/21 05:25 07/12/21 05:25 Other Lab Results: Lab Results x24hrs 07/12/21 07/12/21 07/11/21 Range/Units 05:25 05:25 19:11 WBC 8.6 8.2 (4.8-10.8) x10^3/uL RBC 3.80 L 4.20 (4.20-5.40) 10^6/uL Hgb 11.7 L 12.9 (12.0-16.0) g/dL Hct 34.7 L 39.1 (37.0-47.0) % MCV 91.3 93.1 (81.0-99.0) fL MCH 30.8 30.7 (27.0-31.0) pg MCHC 33.7 33.0 (32.0-36.0) g/dL RDW 14.0 14.1 (12.0-15.0) % Plt Count 183 204 (130-450) 10^3/uL MPV 10.3 10.1 (7.9-10.8) fL Neut # (Auto) 6.2 6.7 H (1.5-6.6) 10^3/uL Lymph # (Auto) 1.2 L 0.6 L (1.5-3.5) 10^3/uL [place] # (Auto) 0.8 0.7 (0.0-1.0) 10^3/uL Eos # (Auto) 0.3 0.1 (0.0-0.7) 10^3/uL Baso # (Auto) 0.1 0.0 (0.0-0.1) 10^3/uL Absolute Nucleated RBC 0.00 0.00 x10^3/uL Nucleated RBC % 0.0 0.0 /100WBC Sodium 136 (135-145) mmol/L Potassium 3.8 (3.5-5.0) mmol/L Chloride 103 (101-111) mmol/L Carbon Dioxide 27 (21-32) mmol/L Anion Gap 6.0 (6-13) BUN 23 H (6-20) mg/dL Creatinine 0.9 (0.4-1.0) mg/dL Estimated GFR (MDRD) 60 L (>89) Glucose 108 H (70-100) mg/dL Calcium 8.9 (8.5-10.3) mg/dL Total Bilirubin (0.2-1.0) mg/dL AST (10-42) IU/L ALT (10-60) IU/L Alkaline Phosphatase (42-121) IU/L Total Protein (6.7-8.2) g/dL Albumin (3.2-5.5) g/dL Globulin (2.1-4.2) g/dL Albumin/Globulin Ratio (1.0-2.2) Lipase (22-51) U/L Nasal Adenovirus (PCR) Nasal B. parapertussis DNA (PCR) Nasal Coronavir 229E PCR Nasal Coronavir HKU1 PCR Nasal Coronavir NL63 PCR Nasal Coronavir OC43 PCR Nasal Enterovir/Rhinovir PCR Nasal Influenza B PCR Nasal Influenza A PCR Nasal Parainfluen 1 PCR Nasal Parainfluen 2 PCR Nasal Parainfluen 3 PCR Nasal Parainfluen 4 PCR Nasal RSV (PCR) Nasal B.pertussis DNA PCR Nasal C.pneumoniae (PCR) Dante Human Metapneumo PCR Nasal M.pneumoniae (PCR) Nasal SARS-CoV-2 (PCR) 07/11/21 07/11/21 Range/Units 18:27 18:27 WBC (4.8-10.8) x10^3/uL RBC (4.20-5.40) 10^6/uL Hgb (12.0-16.0) g/dL Hct (37.0-47.0) % MCV (81.0-99.0) fL MCH (27.0-31.0) pg MCHC (32.0-36.0) g/dL RDW (12.0-15.0) % Plt Count (130-450) 10^3/uL MPV (7.9-10.8) fL Neut # (Auto) (1.5-6.6) 10^3/uL Lymph # (Auto) (1.5-3.5) 10^3/uL [place] # (Auto) (0.0-1.0) 10^3/uL Eos # (Auto) (0.0-0.7) 10^3/uL Baso # (Auto) (0.0-0.1) 10^3/uL Absolute Nucleated RBC x10^3/uL Nucleated RBC % /100WBC Sodium 136 (135-145) mmol/L Potassium 4.3 (3.5-5.0) mmol/L Chloride 101 (101-111) mmol/L Carbon Dioxide 27 (21-32) mmol/L Anion Gap 8.0 (6-13) BUN 25 H (6-20) mg/dL Creatinine 0.9 (0.4-1.0) mg/dL Estimated GFR (MDRD) 60 L (>89) Glucose 90 (70-100) mg/dL Calcium 10.0 (8.5-10.3) mg/dL Total Bilirubin 1.1 H (0.2-1.0) mg/dL AST 19 (10-42) IU/L ALT 18 (10-60) IU/L Alkaline Phosphatase 52 (42-121) IU/L Total Protein 6.9 (6.7-8.2) g/dL Albumin 3.8 (3.2-5.5) g/dL Globulin 3.1 (2.1-4.2) g/dL Albumin/Globulin Ratio 1.2 (1.0-2.2) Lipase 31 (22-51) U/L Nasal Adenovirus (PCR) NOT DETECTED Nasal B. parapertussis DNA (PCR) NOT DETECTED Nasal Coronavir 229E PCR NOT DETECTED Nasal Coronavir HKU1 PCR NOT DETECTED Nasal Coronavir NL63 PCR NOT DETECTED Nasal Coronavir OC43 PCR NOT DETECTED Nasal Enterovir/Rhinovir PCR NOT DETECTED Nasal Influenza B PCR NOT DETECTED Nasal Influenza A PCR NOT DETECTED Nasal Parainfluen 1 PCR NOT DETECTED Nasal Parainfluen 2 PCR NOT DETECTED Nasal Parainfluen 3 PCR NOT DETECTED Nasal Parainfluen 4 PCR NOT DETECTED Nasal RSV (PCR) NOT DETECTED Nasal B.pertussis DNA PCR NOT DETECTED Nasal C.pneumoniae (PCR) NOT DETECTED Dante Human Metapneumo PCR NOT DETECTED Nasal M.pneumoniae (PCR) NOT DETECTED Nasal SARS-CoV-2 (PCR) NOT DETECTED - Diagnostic Imaging Results Diagnostic Imaging Results: negative: Read independently (Valgus impacted femoral neck fracture left hip, good alignment on the lateral view of the femoral neck fracture left hip) Sepsis Event Note (H) - Evaluation Current Stage of Sepsis: Ruled out Impression/Plan - Problem List Problem List: 1. Valgus impacted femoral neck fracture left hip I have discussed the risk, goals of treatment and likelihood of achieving goals, alternatives of treatment including both nonoperative and operative treatment, disability and rarely . She elected proceed with surgery and I have discussed both percutaneous screw fixation and hemiarthroplasty. She would like to proceed with percutaneous screw fixation which has at least an 80% chance of success or better. There is a possibility that a revision surgery to a total hip arthroplasty could be necessary within the next year. She is agreement to the percutaneous screw fixation, has signed informed consent. The plan will be percutaneous screw fixation femoral neck fracture left hip. The plan will be to do the surgery this morning as soon as the operating room team is available. I have discussed the case with our hospitalist who feels that there is no contraindication to the surgery. 2. Parkinson's disease She is a fall risk and should use a walker on a full-time basis for all walking activities in the future and osteoporosis treatment needs to be strongly considered by her primary care team
[2021-07-12] MEDS ORDERED: LACTATED RINGERS 1,000 ML IV SCH (10:00)
[2021-07-12] MEDS ORDERED: PHENYLEPHRINE 10 MG/ML VIAL ONE (10:09)
[2021-07-12] MEDS ORDERED: ePHEDrine 50 MG/ML VIAL IVP ONE (10:12)
[2021-07-12] MEDS ORDERED: ceFAZolin 1 GM VIAL ONE (10:21)
[2021-07-12] MEDS ORDERED: ROPIVACAINE 0.5% PF 30 ML VIAL ONE (10:45)
--- NOTE | 2021-07-12 11:31 | OPERATIVE REPORT ---
Operative Report - General Admit Date: 07/11/21 Procedure Date: 07/12/21 Planned Procedure: Percutaneous cannulated screw fixation femoral neck fracture left hip Pre-Op Diagnosis: Valgus impacted femoral neck fracture left hip Procedure Performed: Percutaneous cannulated screw fixation femoral neck fracture left hip using Synthes 7.3 mm stainless steel cannulated screws: Two 70 mm short thread compression screws and one 70 mm long thread compression screw Post Op Diagnosis: Same as preoperative diagnosis - Procedure Note Primary Surgeon: Sid Cortez MD Anesthesia Provider: Mica Thomas CRNA Anesthesia Technique: Regional block, Spinal Estimated Blood Loss (mL): 5 Indications: This is a 85-year-old woman who is relatively healthy but limited in her ability to ambulate because of balance issues associated with Parkinson's disease. She sustained a mechanical fall yesterday at home and was brought to the hospital because of pain about her left hip. She was found to have signs of a fracture to left hip. Her x-rays showed a valgus impacted fracture on the AP view and no displacement on the lateral view. She had preoperative medical evaluation by her hospitalist. She would like to maintain her ability to ambulate and has chosen to proceed with percutaneous screw fixation of her femoral neck fracture left hip Findings: The C arm image radiographs confirmed good alignment of the femoral neck fracture on lateral view. There was a valgus impaction on AP view of left hip Complications: None - Other Other Information/Narrative: The patient was brought to the operating room. She is given a spinal anesthetic. She is placed on the [place] orthopedic fracture table. The right leg was placed in a well-leg barker and the left leg and padded boot traction. No traction was necessary for her left leg. She was positioned in a supine position. The left hip and left lower extremity were prepped and draped in a sterile manner in the usual fashion. The C-arm image intensifier was covered with a sterile drape. A timeout procedure was performed by the entire operating room team and all were in agreement. She did receive 2 g of Ancef intravenously. 1 cm incision was made over the lateral aspect of the left hip. The incision involved skin and subcutaneous tissue. This allowed insertion of the guidepin which was inserted using C arm image guidance on AP and lateral views. The goal was to try to span the femoral head from superior to inferior and anterior to posterior. 3 guidepins were inserted. The pattern of the pins was triangular. The depth of the pins were measured with a cannulated depth gauge. The lateral cortex was drilled and 70 mm Synthes 7.3 mm cannulated screws were used to stabilize the fracture. A washer was inserted on the most superior screw. The distal 2 screws were too close together to allow a washer. There was not 3 screws of the same size and 16mm lengths for the screw length so 32 mm was used for the most inferior screw. The radiographs confirmed good alignment of the screws transfixing the femoral neck fracture and within the neck and femoral head. The skin was closed with 3 0 strata fix suture, Dermabond and a self- adhesive silver impregnated Mepilex dressing. She tolerated the procedure well. There is no clinical deformity to left hip and there was good motion to left hip.
[2021-07-12] MEDS ORDERED: LACTATED RINGERS 1,000 ML IV ONE (11:38)
[2021-07-12] MEDS ORDERED: BACLOFEN 10 MG TABLET PO PRN (13:36)
--- NOTE | 2021-07-12 16:40 | XRAY Report ---
PROCEDURE: OR C-Arm Procedure INDICATIONS: LEFT HIP PINNING TECHNIQUE: 2 intraoperative fluoroscopic images of left hip were obtained. COMPARISON: 07/11/2021. FINDINGS: Intraoperative fluoroscopic images shows surgical pinning of left femoral neck with [address]. Left hip alignment is anatomic. Total fluoroscopy time is 38 seconds. IMPRESSION: Fluoroscopy guidance was provided intraoperatively for left femoral neck pinning. Reviewed by: Larry Galarza MD on 07/12/2021 4:38 PM PST Approved by: Larry Galarza MD on 07/12/2021 4:38 PM PST Station ID: [id number]
--- NOTE | 2021-07-12 19:57 | ANESTHESIA POST OP EVALUATION ---
Anesthesia Post Eval - Post Anesthesia Eval Vitals: Last Vital Signs Temp 36.6 C 07/12/21 17:41 Pulse 84 07/12/21 17:41 Resp 20 07/12/21 17:41 BP 148/61 H 07/12/21 17:41 Pulse Ox 89 L 07/12/21 17:41 CV Function Including HR & BP: Stable Pain Control: Satisfactory Nausea & Vomiting: Negative Mental Status: Baseline Respiratory Status: Airway Patent Hydration Status: Satisfactory Anesthesia Complications: None
[2021-07-12] MEDS: ASPIRIN CHEW 81 MG TABLET PO SCH (21:58)
[2021-07-12] MEDS: ACETAMINOPHEN 325 MG TABLET PO PRN (21:59)
[2021-07-13] MEDS: SODIUM CHLORIDE FLUSH 0.9% 10 ML SYRINGE IVP SCH ×3 (01:47→16:28)
[2021-07-13] MEDS: KETOROLAC 15 MG/ML VIAL IVP PRN (01:47)
[2021-07-13 05:08] LABS: BASOPHILS % (AUTO) 0.5 %; EOSINOPHILS # (AUTO) 0.3 10^3/uL (0.0-0.7); EOSINOPHILS % (AUTO) 3.8 %; HCT - HEMATOCRIT 34.4 % (37.0-47.0); HGB - HEMOGLOBIN 11.7 g/dL (12.0-16.0); LYMPHOCYTES # (AUTO) 1.3 10^3/uL (1.5-3.5); LYMPHOCYTES % (AUTO) 14.4 %; MEAN CORPUSCULAR HEMOGLOBIN 31.3 pg (27.0-31.0); MEAN PLATELET VOLUME 10.7 fL (7.9-10.8); MONOCYTES # (AUTO) 0.9 10^3/uL (0.0-1.0); MONOCYTES % (AUTO) 9.8 %; NEUTROPHILS # (AUTO) 6.3 10^3/uL (1.5-6.6); NEUTROPHILS % (AUTO) 71.2 %; PLT - PLATELET COUNT 178 10^3/uL (130-450); RED BLOOD COUNT 3.74 10^6/uL (4.20-5.40); RED CELL DISTRIBUTION WIDTH 14.2 % (12.0-15.0); WHITE BLOOD COUNT 8.9 x10^3/uL (4.8-10.8)
[2021-07-13 05:19] LABS: CALCIUM 8.9 mg/dL (8.5-10.3); CREATININE 0.9 mg/dL (0.4-1.0); POTASSIUM 3.9 mmol/L (3.5-5.0)
[2021-07-13] MEDS: ACETAMINOPHEN 325 MG TABLET PO PRN ×2 (07:21→22:33)
[2021-07-13] MEDS: AMOXICILLIN 250 MG CAPSULE PO SCH ×3 (07:21→21:15)
[2021-07-13] MEDS: LEVOTHYROXINE 75 MCG TABLET PO SCH (07:22)
--- NOTE | 2021-07-13 08:04 | PROVIDER PROGRESS NOTE ---
Subjective - Prog Note Date Prog Note Date: 07/13/21 Prog Note Time: 12:20 - Subjective Pt reports feeling: Improved Subjective: Patient reports that she is feeling well this afternoon. She reported that she ambulated well with physical therapy using the walker. She feels her pain is well controlled. Denies shortness of breath, chest pain, nausea, vomiting or abdominal pain. Her appetite has been good. Reports that she had a bowel movement yesterday and has been passing gas. She would like to go home. Current Medications - Current Medications Current Medications: Active Medications Acetaminophen (Acetaminophen 325 Mg Tablet) 650 mg PO Q4HR PRN PRN Reason: Pain 1 to 4 Last Admin: 07/13/21 07:21 Dose: 650 mg Amoxicillin (Amoxicillin 250 Mg Capsule) 500 mg PO TID [facility] Last Admin: 07/13/21 07:21 Dose: 500 mg Aspirin (Aspirin Chew 81 Mg Tablet) 81 mg PO BID [facility] Last Admin: 07/12/21 21:58 Dose: 81 mg Baclofen (Baclofen 10 Mg Tablet) 10 mg PO BID PRN PRN Reason: PAIN Last Admin: 07/13/21 01:47 Dose: 10 mg Bupropion HCl (Bupropion Sr 100 Mg Tablet) 100 mg PO DAILY [facility] Ketorolac Tromethamine (Ketorolac 15 Mg/Ml Vial) 15 mg IVP Q6HR PRN PRN Reason: PAIN Stop: 07/16/21 18:26 Last Admin: 07/13/21 01:47 Dose: 15 mg Levothyroxine Sodium (Levothyroxine 75 Mcg Tablet) 75 mcg PO QDAC [facility] Last Admin: 07/13/21 07:22 Dose: 75 mcg Ondansetron HCl (Ondansetron Odt 4 Mg Tablet) 4 mg TL Q6HR PRN PRN Reason: Nausea / Vomiting Ondansetron HCl (Ondansetron 4 Mg/2 Ml Vial) 4 mg IVP Q6HR PRN PRN Reason: Nausea / Vomiting Sodium Chloride (Sodium Chloride Flush 0.9% 10 Ml Syringe) 10 ml IVP PRN PRN PRN Reason: NEEDED PER PROVIDER ORDERS Last Admin: 07/12/21 03:03 Dose: 10 ml Sodium Chloride (Sodium Chloride Flush 0.9% 10 Ml Syringe) 10 ml IVP 0100,0900,1700 [facility] Last Admin: 07/13/21 01:47 Dose: 10 ml Aspirin Chewable [St Korey Aspirin] 81 mg PO DAILY 06/03/17 Levothyroxine [Synthroid] 75 mcg PO QDAC 06/03/17 Raloxifene [Evista] 60 mg PO DAILY 06/03/17 buPROPion HCl [Bupropion HCl Sr] 100 mg PO DAILY 06/03/17 Baclofen [Lioresal] 10 mg PO BID PRN 07/12/21 Objective - Vital Signs/Intake & Output Reviewed Vital Signs: Yes Vital Signs: Vital Signs x48h Temp Pulse Resp BP Pulse Ox 07/13/21 07:40 36.4 C L 85 18 146/53 H 89 L 07/13/21 04:44 36.7 C 81 20 137/59 H 91 L Intake & Output: Intake & Output 07/10/21 07/11/21 07/12/21 07/13/21 23:59 23:59 23:59 23:59 Intake Total 350 1137 450 Output Total 250 1875 950 Balance 100 -005 -500 - Objective General Appearance: positive: No acute distress, Alert, Other (Sitting up in chair, eating lunch) Eyes Bilateral: positive: Normal inspection, PERRL ENT: positive: ENT inspection nml, No signs of dehydration Neck: positive: Nml inspection Respiratory: positive: Chest non-tender, No respiratory distress, Breath sounds nml Cardiovascular: positive: Regular rate & rhythm. negative: Tachycardia Peripheral Pulses: 2+ Radial (R), 2+ Radial (L), 2+ Dorsalis pedis (R), 2+ Dorsalis pedis (L) Abdomen: positive: Non-tender, Nml bowel sounds Skin: positive: Warm, Dry, Other (Mild eccymosis on left lateral mandible from recent wisdom tooth extraction) Extremities: positive: Non-tender, No pedal edema, Other (Dressing over lateral aspect of left lower extremity. Dressing is dry and intact without erythema, ecchymosis or swelling.) Neurologic/Psychiatric: positive: Oriented x3, Motor nml, Sensation nml, Other (Neurologially intact distal to surgical site) - Lab Results Fish Bones: 07/13/21 04:30 07/13/21 04:30 Other Labs: Lab Results x24hrs 07/13/21 07/13/21 Range/Units 04:30 04:30 WBC 8.9 (4.8-10.8) x10^3/uL RBC 3.74 L (4.20-5.40) 10^6/uL Hgb 11.7 L (12.0-16.0) g/dL Hct 34.4 L (37.0-47.0) % MCV 92.0 (81.0-99.0) fL MCH 31.3 H (27.0-31.0) pg MCHC 34.0 (32.0-36.0) g/dL RDW 14.2 (12.0-15.0) % Plt Count 178 (130-450) 10^3/uL MPV 10.7 (7.9-10.8) fL Neut # (Auto) 6.3 (1.5-6.6) 10^3/uL Lymph # (Auto) 1.3 L (1.5-3.5) 10^3/uL [place] # (Auto) 0.9 (0.0-1.0) 10^3/uL Eos # (Auto) 0.3 (0.0-0.7) 10^3/uL Baso # (Auto) 0.0 (0.0-0.1) 10^3/uL Absolute Nucleated RBC 0.00 x10^3/uL Nucleated RBC % 0.0 /100WBC Sodium 135 (135-145) mmol/L Potassium 3.9 (3.5-5.0) mmol/L Chloride 105 (101-111) mmol/L Carbon Dioxide 25 (21-32) mmol/L Anion Gap 5.0 L (6-13) BUN 16 (6-20) mg/dL Creatinine 0.9 (0.4-1.0) mg/dL Estimated GFR (MDRD) 60 L (>89) Glucose 111 H (70-100) mg/dL Calcium 8.9 (8.5-10.3) mg/dL - Diagnostic Imaging Diagnostic Imaging Results: positive: See rad report Diagnostic Imaging Comments: Chest x-ray shows mild infiltrates in the lung bases. Likely atelectasis. ABX Reporting Has patient been on IV antibiotics over the past 48 hours?: No Sepsis Event Note (H) - Evaluation Current Stage of Sepsis: Ruled out Assessment/Plan - Problem List (1) Fracture of femoral neck, left Impression: Status day 1 post percutaneous cannulated screw fixation femoral neck fracture left hip. She seems to be making good progress today, up with physical therapy, ambulated well with walker. Weight bearing as tolerated. Cope catheter discontinued today. She is having bowel movements. Inspirometer contraindicated due to recent wisdom tooth surgery. She is encouraged to take deep breathers and continue to ambulate as tolerated. Possible discharge home tomorrow if she continues to progress well. DVT prophylaxis for 6 weeks with aspirin. Pain is controlled with Tylenol. She will need a bisphosphonate 2 weeks after the fracture. (2) Parkinsons disease Impression: Stable and at baseline. She is ambulating well with a walker. (3) [place] teeth removed Impression: We will continue her amoxicillin as previously prescribed. (4) Hypothyroidism Impression: Continue usual home Synthroid. Last TSH 1.13 11/12.
[2021-07-13] MEDS: ASPIRIN CHEW 81 MG TABLET PO SCH ×2 (08:35→21:14)
[2021-07-13] MEDS: buPROPion SR 100 MG TABLET PO SCH (08:35)
--- NOTE | 2021-07-13 10:23 | XRAY Report ---
PROCEDURE: Chest 1 View X-Ray INDICATIONS: Hypoxia. TECHNIQUE: One view of the chest was acquired. COMPARISON: None FINDINGS: Surgical changes and devices: None. Lungs and pleura: No pleural effusions or pneumothorax. Streaky opacities can be seen at the lung b ases. Mediastinum: Mediastinal contours appear normal. Heart size is normal. Calcification is seen of th e aortic arch. Bones and chest wall: No suspicious bony lesions. Age-appropriate degenerative changes are seen. Mi ld levoconvex scoliotic curvature is seen. Overlying soft tissues appear unremarkable. IMPRESSION: Likely atelectasis at the lung bases. Differential diagnosis includes mild/early infilt rate, yet this is considered to be less likely. Please consider a short-term follow-up 2 view chest series (performed in deep inspiration) for furthe r evaluation. Reviewed by: David Arreguin MD on 07/13/2021 9:22 AM [facility] Approved by: David Arreguin MD on 07/13/2021 9:22 AM [facility] Station ID: [id number]
--- NOTE | 2021-07-13 11:00 | PROVIDER PROGRESS NOTE ---
Subjective - General Admit Date: 07/11/21 Procedure Date: 07/12/21 Post Op Days: 1 Procedure Performed: Percutaneous cannulated screw fixation femoral neck fracture left hip - Review of Systems Wound/Incisions: positive: Dressing dry and intact General: positive: No symptoms Pulmonary: positive: No symptoms Cardiovascular: positive: No symptoms Gastrointestinal: positive: No symptoms Psychiatric: positive: No symptoms All Other Systems: positive: Reviewed and negative - Other Other Information/Narrative: Her pain seems to be under good control especially when she is not moving her left leg. She has been up with a walker yesterday, ambulating to bathroom.She denies chest pain, shortness of breath, nausea or vomiting. Objective - Patient Data Vital Signs: Vital Signs x48h Temp Pulse Resp BP Pulse Ox 07/13/21 10:52 88 L 07/13/21 09:22 19 92 07/13/21 08:33 94 07/13/21 08:15 85 L 07/13/21 07:40 36.4 C L 85 18 146/53 H 89 L 07/13/21 04:44 36.7 C 81 20 137/59 H 91 L Weight: Weight 07/11/21 07/12/21 07/13/21 23:59 23:59 23:59 Weight (kg) 72.5 kg 72.5 kg Intake & Output: Intake and Output Totals x24h 07/11/21 07/12/21 07/13/21 23:59 23:59 23:59 Intake Total 350 1137 450 Output Total 250 1875 1700 Balance 184 -034 -9543 - Lab Results Lab Results: 07/13/21 04:30 07/13/21 04:30 Other Lab Results: Lab Results x24hrs 07/13/21 07/13/21 Range/Units 04:30 04:30 WBC 8.9 (4.8-10.8) x10^3/uL RBC 3.74 L (4.20-5.40) 10^6/uL Hgb 11.7 L (12.0-16.0) g/dL Hct 34.4 L (37.0-47.0) % MCV 92.0 (81.0-99.0) fL MCH 31.3 H (27.0-31.0) pg MCHC 34.0 (32.0-36.0) g/dL RDW 14.2 (12.0-15.0) % Plt Count 178 (130-450) 10^3/uL MPV 10.7 (7.9-10.8) fL Neut # (Auto) 6.3 (1.5-6.6) 10^3/uL Lymph # (Auto) 1.3 L (1.5-3.5) 10^3/uL [place] # (Auto) 0.9 (0.0-1.0) 10^3/uL Eos # (Auto) 0.3 (0.0-0.7) 10^3/uL Baso # (Auto) 0.0 (0.0-0.1) 10^3/uL Absolute Nucleated RBC 0.00 x10^3/uL Nucleated RBC % 0.0 /100WBC Sodium 135 (135-145) mmol/L Potassium 3.9 (3.5-5.0) mmol/L Chloride 105 (101-111) mmol/L Carbon Dioxide 25 (21-32) mmol/L Anion Gap 5.0 L (6-13) BUN 16 (6-20) mg/dL Creatinine 0.9 (0.4-1.0) mg/dL Estimated GFR (MDRD) 60 L (>89) Glucose 111 H (70-100) mg/dL Calcium 8.9 (8.5-10.3) mg/dL - Current Medications Current Medications: Current Medications Generic Name Dose Route Start Last Admin Trade Name Sarah PRN Reason Stop Dose Admin Acetaminophen 650 mg 07/11/21 17:57 07/13/21 07:21 Acetaminophen 325 Mg Tablet PO 650 mg Q4HR PRN Administration Pain 1 to 4 Amoxicillin 500 mg 07/11/21 22:00 07/13/21 07:21 Amoxicillin 250 Mg Capsule PO 500 mg TID DANIELLE Administration Aspirin 81 mg 07/12/21 21:00 07/13/21 08:35 Aspirin Chew 81 Mg Tablet PO 81 mg BID DANIELLE Administration Baclofen 10 mg 07/12/21 13:36 07/13/21 01:47 Baclofen 10 Mg Tablet PO 10 mg BID PRN Administration PAIN Bupropion HCl 100 mg 07/13/21 09:00 07/13/21 08:35 Bupropion Sr 100 Mg Tablet PO 100 mg DAILY DANIELLE Administration Ketorolac Tromethamine 15 mg 07/11/21 18:27 07/13/21 01:47 Ketorolac 15 Mg/Ml Vial IVP 07/16/21 18:26 15 mg Q6HR PRN Administration PAIN Levothyroxine Sodium 75 mcg 07/13/21 07:00 07/13/21 07:22 Levothyroxine 75 Mcg Tablet PO 75 mcg QDAC DANIELLE Administration Sodium Chloride 10 ml 07/11/21 17:57 07/12/21 03:03 Sodium Chloride Flush 0.9% 10 Ml Syringe IVP 10 ml PRN PRN Administration NEEDED PER PROVIDER ORDERS Sodium Chloride 10 ml 07/12/21 01:00 07/13/21 08:35 Sodium Chloride Flush 0.9% 10 Ml Syringe IVP 10 ml 0100,0900,1700 DANIELLE Administration - Physical Exam Wound/Incisions: positive: Dressing dry and intact General Appearance: positive: No acute distress Respiratory: positive: No respiratory distress Abdomen: positive: Non-tender, No distention Neurologic/Psychiatric: positive: Oriented x3 Comments/Other: Left leg shows no clinical deformity, mild pain with movement left hip, dressing dry and intact, no sign of hematoma, neurovascular intact left leg Impression/Plan - Problem List Problem List: 1. Status post percutaneous cannulated screw fixation femoral neck fracture left hip Continue with physical and occupational therapy, use of walker weightbearing as tolerated, deep venous thrombosis prophylaxis for 6 weeks and osteoporosis medication per primary care upon discharge or sooner. She seems to be making good progress so far, Cope catheter can be discontinued and therapy progressed as tolerated with discharge to home when felt to be safe, return appointment to orthopedic office within 2 weeks
[2021-07-14] MEDS: KETOROLAC 15 MG/ML VIAL IVP PRN (02:27)
[2021-07-14] MEDS: SODIUM CHLORIDE FLUSH 0.9% 10 ML SYRINGE IVP SCH ×2 (02:28→08:26)
[2021-07-14 05:49] LABS: BASOPHILS # (AUTO) 0.1 10^3/uL (0.0-0.1); BASOPHILS % (AUTO) 0.6 %; EOSINOPHILS # (AUTO) 0.4 10^3/uL (0.0-0.7); EOSINOPHILS % (AUTO) 4.2 %; HCT - HEMATOCRIT 31.9 % (37.0-47.0); HGB - HEMOGLOBIN 10.6 g/dL (12.0-16.0); LYMPHOCYTES # (AUTO) 1.5 10^3/uL (1.5-3.5); LYMPHOCYTES % (AUTO) 17.5 %; MEAN CORPUSCULAR HEMOGLOBIN 30.5 pg (27.0-31.0); MEAN CORPUSCULAR HGB CONC 33.2 g/dL (32.0-36.0); MEAN CORPUSCULAR VOLUME 91.7 fL (81.0-99.0); MEAN PLATELET VOLUME 10.9 fL (7.9-10.8); MONOCYTES # (AUTO) 1.2 10^3/uL (0.0-1.0); MONOCYTES % (AUTO) 14.1 %; NEUTROPHILS # (AUTO) 5.4 10^3/uL (1.5-6.6); NEUTROPHILS % (AUTO) 63.1 %; PLT - PLATELET COUNT 182 10^3/uL (130-450); RED BLOOD COUNT 3.48 10^6/uL (4.20-5.40); RED CELL DISTRIBUTION WIDTH 14.2 % (12.0-15.0); WHITE BLOOD COUNT 8.5 x10^3/uL (4.8-10.8)
[2021-07-14 06:03] LABS: CALCIUM 8.7 mg/dL (8.5-10.3); CREATININE 0.8 mg/dL (0.4-1.0); POTASSIUM 3.9 mmol/L (3.5-5.0)
[2021-07-14] MEDS: LEVOTHYROXINE 75 MCG TABLET PO SCH (06:47)
[2021-07-14] MEDS: AMOXICILLIN 250 MG CAPSULE PO SCH (06:47)
[2021-07-14 07:37] VITALS: BP 139/59
--- NOTE | 2021-07-14 07:43 | Discharge Plan ---
Discharge Plan Problem Reviewed?: Yes Disposition: Home Health Service Condition: Good Prescriptions: Alendronate [Fosamax] 70 mg PO Q7D #4 tablet Aspirin Chewable [St Korey Aspirin] 81 mg PO BID 42 Days #84 tablet Calcium Carbonate [Tums (Calcium Carbonate 500mg)] 500 mg PO BID #30 tablet Cholecalciferol [Vitamin D3] 25 mcg PO DAILY #30 tablet Diet: Regular Activity Restrictions: Activity as Tolerated Assistance Devices: Walker Instruction Topics: Fx Hip Surg Dc Health Concerns: You were admitted because of left hip fracture and you had surgery to fix this. You had a screw placed in your left hip on July 12 and you have done well since then. Physical therapy does not think you need rehab facility and if you can just have physical therapy at home. Plan of Treatment: Please take aspirin 81 mg twice a day for 6 weeks (until August 25) and then go back to taking 81 mg once a day. Your pain has been controlled with Tylenol alone she may continue to take this as needed. I have sent a prescription for medication called Fosamax. This is to help treat your osteoporosis. Please do not begin taking this medication until July 25. This medication will only be once a week. Please also take Vitamin D3 and calcium supplementation that was prescribed. You were previously taking antibiotics after your wisdom tooth was removed. We continue this while you are here in the hospital for 2 days. You should take your home antibiotics as previously prescribed but it is recommended that you do not finish the whole bottle as you received antibiotics while you were here so you will have extra at home. You should have about 6 extra tablets left over at home after you completed the antibiotics. You will need to follow-up with orthopedic surgery within 2 weeks to have the giovana removed. Assessment: The patient expressed understanding of the treatment plan. Additional Instructions or Follow Up instructions: Please follow-up with your primary care physician in 1 to 2 weeks. Please follow-up with orthopedic surgery within 2 weeks. The number for the clinic is . Please return to the emergency department if you develop any fevers, chills, or worsening pain, redness or drainage from the surgical site. Follow-Up Care: Home Health - PT, Home Health - OT No Smoking: If you smoke, Please STOP! Call for help. Follow-up with: Pierre Flower MD [Primary Care Provider] -
--- NOTE | 2021-07-14 07:55 | DISCHARGE SUMMARY ---
"Discharge Summary Admit Date: 07/11/21 Discharge Date: 07/14/21 Discharging Provider: Gregorio Lorenzana Primary Care Provider: Pierre Flower Code Status: Attempt Resuscitation Condition at Discharge: Good Discharge Disposition: Home Health Service - DIAGNOSES Admission Diagnoses: Fracture of femoral neck, left Preop evaluation Parkinson's disease Hypothyroidism [place] teeth removed Discharge Diagnoses with Status of Each Condition: Fracture of femoral neck, left - improved. Parkinson's disease - stable. Hypothyroidism - stable. [place] teeth removed - stable. - HPI History of Present Illness: This is a 85-year-old female with a past medical history significant for hypothyroidism, Parkinson's disease who presents today after a fall at home. She states that she fell this morning when walking to the bathroom and landed on her left hip. She denies any syncope or loss of consciousness. She was able to get up with the help of her but she noted she had some left hip pain. S he was still able to ambulate so she did not think much of it. She went on with her day but noticed that she became more uncomfortable. She tried taking a nap but had difficulty doing so due to the pain. Her left hip pain is worse with movement and activity. It is predominant located over the medial aspect of the hip close to her groin. It is about a 4 out of 10. She reports no numbness or tingling. She states she is normally active. She does have Parkinson's disease but is not on any therapy for it as she did not find any improvement with prior therapies. She states she normally ambulates on her own. She denies any cardiac history including heart disease. She states she is able to go up a flight of stairs without chest pain. She states that she is always chronically short of breath due to history of sinusitis. She did have wisdom tooth removed yesterday and she is on amoxicillin 500 mg 3 times daily. In the emergency department, imaging revealed a left hip fracture. Given this, medicine was consulted for admission. We discussed goals of care and she would like to be a full code. - CONSULTS | PROCEDURES Consultations: Orthopedic Surgery Procedures: She underwent percutaneous cannulated screw fixation of the femoral neck fracture of the left hip on July 12 with orthopedic surgery. - HOSPITAL COURSE Hospital Course: She was admitted to the floor for left hip fracture and she was treated with Tylenol and Toradol as needed for pain control. She was seen by orthopedic surgery and she went to the OR the following day for percutaneous cannulated screw fixation of the left femoral neck fracture. She was seen by physical therapy the following day and did quite well using a front wheel walker. It was recommended that she have home health at home but she did not require SNF. She was observed one more night and continue to do well and so she was discharged home on postop day 2. She was instructed to take aspirin 81 mg twice daily for DVT prophylaxis as recommended by orthopedic surgery. I also prescribed her Fosamax to begin in 2 weeks. She was also given the contact information for the orthopedic surgery clinic to schedule follow-up within 2 weeks for staple removal. - ALLERGIES Allergies/Adverse Reactions: Allergies Allergy/AdvReac Type Severity Reaction Status Date / Time codeine Allergy Unknown Verified 07/11/21 16:35 mercury (elemental) Allergy Rash Verified 07/11/21 16:35 Sulfa (Sulfonamide Allergy Hives Verified 07/11/21 16:35 Antibiotics) - MEDICATIONS Home Medications: Ambulatory Orders Medication Instructions Recorded Confirmed Levothyroxine [Synthroid] 75 mcg PO QDAC 06/03/17 07/12/21 Raloxifene [Evista] 60 mg PO DAILY 06/03/17 07/12/21 buPROPion HCl [Bupropion HCl Sr] 100 mg PO DAILY 06/03/17 07/12/21 Baclofen [Lioresal] 10 mg PO BID PRN 07/12/21 07/12/21 Alendronate [Fosamax] 70 mg PO Q7D #4 tablet 07/14/21 Aspirin Chewable [St Korey 81 mg PO BID 42 Days #84 tablet 07/14/21 Aspirin] Calcium Carbonate [Tums (Calcium 500 mg PO BID #30 tablet 07/14/21 Carbonate 500mg)] Cholecalciferol [Vitamin D3] 25 mcg PO DAILY #30 tablet 07/14/21 - PHYSICAL EXAM AT DISCHARGE General Appearance: positive: No acute distress, Alert Eyes Bilateral: positive: Normal inspection, Conjunctivae nml ENT: positive: ENT inspection nml Neck: positive: Nml inspection Respiratory: positive: No respiratory distress. negative: Wheezes, Rales Cardiovascular: positive: Regular rate & rhythm. negative: Tachycardia Abdomen: positive: Non-tender, No distention. negative: Tenderness Skin: positive: Warm, Dry Extremities: positive: Other (Dressing in place over lateral aspect of left hip without erythema. She is neurovascular intact. +2 dorsalis pedis pulses in left lower extremity.) Neurologic/Psychiatric: positive: Other (Baseline tremor noted.). negative: Disoriented to person, Disoriented to place Physical Exam Other/Comments: Vital Signs - 24 hr 07/13/21 07/13/21 07/14/21 20:23 23:30 05:03 Temperature 36.3 C L 36.6 C 36.7 C Heart Rate [ 88 93 86 Brachial] Respiratory 20 20 18 Rate Blood Pressure 147/64 H 153/64 H 135/58 H [Right Brachial artery] O2 Saturation 92 90 L 87 L 07/14/21 07:36 Temperature 36.8 C Heart Rate [ 74 Brachial] Respiratory 18 Rate Blood Pressure 139/59 H [Right Brachial artery] O2 Saturation 92 Oxygen O2 Source [With Activity] Room air O2 Source Room air - LABS Result Diagrams: 07/14/21 05:10 07/14/21 05:02 - DIAGNOSTIC IMAGING Diagnostic Imaging Results: Final report reviewed - SEPSIS Current Stage of Sepsis: Ruled out - QUALITY (Female Hip Fx Only) Was patient sent home on osteoporosis medication?: Yes - FOLLOW UP Follow Up: She will need follow-up with her primary care physician in 1 to 2 weeks as well as with orthopedic surgery within 2 weeks. - TIME SPENT Time Spent in Discharge (Minutes): 33"
[2021-07-14] MEDS: ASPIRIN CHEW 81 MG TABLET PO SCH (08:25)
[2021-07-14] MEDS: buPROPion SR 100 MG TABLET PO SCH (08:25)
== END 2021-07-14 12:03 | disposition home health service (06) | DRG 482 ==
LOC: ED 16:25 → MS2 17:57
PROVIDERS: ADMIT Orthopaedic Surgery; ATTEND Internal Medicine
PROC: 0QH734Z Insertion of Internal Fixation Device into Left Upper Femur, Percutaneous Approach (ICD-10-PCS; principal; 2021-07-12 09:30)
DX: S72.012A Unspecified intracapsular fracture of left femur, initial encounter for closed fracture (principal); S72.002A Fracture of unspecified part of neck of left femur, initial encounter for closed fracture; W19.XXXA Unspecified fall, initial encounter; M16.0 Bilateral primary osteoarthritis of hip; Y92.009 Unspecified place in unspecified non-institutional (private) residence as the place of occurrence of the external cause; G20 Parkinson's disease; E03.9 Hypothyroidism, unspecified; K21.9 Gastro-esophageal reflux disease without esophagitis; F32.9 Major depressive disorder, single episode, unspecified; M81.0 Age-related osteoporosis without current pathological fracture; Z20.822 Contact with and (suspected) exposure to COVID-19; Z79.82 Long term (current) use of aspirin; Z79.890 Hormone replacement therapy; Z79.899 Other long term (current) drug therapy; Z82.49 Family history of ischemic heart disease and other diseases of the circulatory system; Z87.891 Personal history of nicotine dependence; Z88.2 Allergy status to sulfonamides; Z88.5 Allergy status to narcotic agent; Z88.8 Allergy status to other drugs, medicaments and biological substances; Z98.890 Other specified postprocedural states
CPT/HCPCS: 36415; 71045; 73502; 80048; 80053; 83690; 85025; 87631; 93005; 97116; 97161; 97530; 99284; 99285; A9270; C1713; J7120; 0202U

== ENCOUNTER 2021-09-03 13:30 | Outpatient (CLI) | payer MEDICARE, OTHER ==
--- NOTE | 2021-09-03 19:16 | XRAY Report ---
PROCEDURE: Hip 2 View LT INDICATIONS: HIP FRACTURE WITH FIXATION TECHNIQUE: 2 views of the hip were acquired. COMPARISON: 07/11/2021 FINDINGS: Bones: Normal bone mineralization. Subcapital left femoral neck fracture shows minimal bridging callu s. Interval placement of cannulated screws are in good position. Right acetabular joint space narrowi ng and subchondral sclerosis. Pelvic ring intact. Soft tissues: No suspicious soft tissue calcifications or masses. IMPRESSION: Healing internally stabilized subcapital left femoral neck fracture Reviewed by: Abdirahman Sparks MD on 09/03/2021 6:[address] Approved by: Abdirahman Sparks MD on 09/03/2021 6:15 PM [place] Station ID: [id number]
== END 2021-09-03 23:59 | disposition home or self-care (01) ==
LOC: DI.WOS 13:30
PROVIDERS: ATTEND Physician Assistant
DX: S72.012D Unspecified intracapsular fracture of left femur, subsequent encounter for closed fracture with routine healing (principal)

== ENCOUNTER 2021-10-01 13:30 | Outpatient (CLI) | payer MEDICARE, OTHER ==
--- NOTE | 2021-10-01 15:46 | XRAY Report ---
PROCEDURE: Hip 2 View LT INDICATIONS: LEFT HIP FRACTURE WITH FIXATION TECHNIQUE: 2 views of the hip were acquired. COMPARISON: Left hip radiographs 09/03/2021 FINDINGS: Bones: Postsurgical changes again seen from fixation of a left proximal femoral fracture with multipl e cannulated lag screws. The hardware is intact. Osseous alignment is unchanged. There appears to be mild progressive healing changes. Degenerative changes are seen in the included lower lumbar spine. M ild degenerative changes in the hips bilaterally. Soft tissues: No suspicious soft tissue calcifications or masses. IMPRESSION: Stable postsurgical changes and alignment involving the left femoral neck. Reviewed by: Eber Mccoy MD on 10/01/2021 3:45 PM PDT Approved by: Eber Mccoy MD on 10/01/2021 3:45 PM PDT Station ID: [id number]
== END 2021-10-01 23:59 | disposition home or self-care (01) ==
LOC: DI.WOS 13:30
PROVIDERS: ATTEND Physician Assistant
DX: S72.012D Unspecified intracapsular fracture of left femur, subsequent encounter for closed fracture with routine healing (principal)

== ENCOUNTER 2021-10-20 08:00 | Outpatient (CLI) | payer MEDICARE, OTHER | END 2021-10-20 23:59 | disposition home or self-care (01) | LOC: LAB 08:00 | PROVIDERS: ATTEND Nurse Practitioner | DX: N39.0 Urinary tract infection, site not specified (principal) | CPT/HCPCS: 87077; 87086; 87181 ==

== ENCOUNTER 2021-12-02 08:00 | Outpatient (CLI) | payer MEDICARE, OTHER ==
--- NOTE | 2021-12-02 16:53 | XRAY Report ---
PROCEDURE: Hip 2 View LT INDICATIONS: HIP FX WITH FIXATION TECHNIQUE: 3 views of the hip were acquired. COMPARISON: 2 views of the hip dated 10/01/2021 FINDINGS: Bones: Cannulated left femoral neck screws are redemonstrated. No hardware fracture. The femoral nec k fracture is no longer visualized. No fractures or dislocations. No suspicious bony lesions. The v isualized pelvic ring appears intact. Soft tissues: No suspicious soft tissue calcifications or masses. IMPRESSION: Interval healing of the left femoral neck fracture. Reviewed by: Micki Alvarez MD on 12/02/2021 4:52 PM PDT Approved by: Micki Alvarez MD on 12/02/2021 4:52 PM PDT Station ID: [id number]
== END 2021-12-02 23:59 | disposition home or self-care (01) ==
LOC: DI.WOS 08:00
PROVIDERS: ATTEND Physician Assistant
DX: S72.012D Unspecified intracapsular fracture of left femur, subsequent encounter for closed fracture with routine healing (principal)

== ENCOUNTER 2022-04-10 12:51 | Outpatient (CLI) | payer MEDICARE, OTHER ==
[~2022-04-10 12:51] MED LIST: GADOBUTROL 7.5 MMOL/7.5 ML VIAL ONE
[2022-04-10] MEDS ORDERED: GADOBUTROL 7.5 MMOL/7.5 ML VIAL IVP ONE (14:42)
--- NOTE | 2022-04-10 18:42 | MRI Report ---
PROCEDURE: BRAIN W/WO INDICATIONS: PROGRESSIVE SUPRANUCLEAR PALSY CONTRAST: 6.8 TECHNIQUE: Noncontrast axial T1 spin echo, axial T2 fast spin echo, sagittal and axial FLAIR, coronal T2 fast sp in echo, axial gradient echo, axial diffusion and ADC through the brain. After the administration of contrast, axial and coronal T1 spin echo with fat saturation through the brain. COMPARISON: 02/07/2019. Correlation is also made with head CT, 06/03/2017 FINDINGS: Image quality: Excellent. CSF spaces: Basal cisterns are patent. No extra-axial fluid collections. Ventricles are normal in size and shape. Brain: No midline shift. No intracranial bleeds or masses. No abnormal intracranial enhancement. There is cerebral volume loss for age. There is periventricular white matter chronic small vessel is chemic change. The brainstem appears normal. Diffusion-weighted images demonstrate no acute ischemi c insults. No chronic ischemic insults. Normal intravascular flow voids are present. Skull and face: Calvarial marrow is normal in signal. Orbits appear normal. Incidental note is mad e of bilateral lens replacements. Sinuses: Sinuses and mastoids appear clear. IMPRESSION: No masses or abnormal enhancement can be seen. Age-appropriate brain parenchymal volume loss and chronic small vessel ischemic change can be seen. Reviewed by: David Arreguin MD on 04/10/2022 5:41 PM [place] Approved by: David Arreguin MD on 04/10/2022 5:41 PM [place] Station ID: [id number]
== END 2022-04-10 12:52 | disposition home or self-care (01) ==
LOC: LAB 12:51
PROVIDERS: ATTEND Family Medicine
DX: G23.1 Progressive supranuclear ophthalmoplegia [Steele-Richardson-Olszewski] (principal)
CPT/HCPCS: 36415; 70553; 82565; A9585

== ENCOUNTER 2022-06-06 14:31 | Outpatient (CLI) | payer MEDICARE, OTHER ==
--- NOTE | 2022-06-09 12:10 | Mammography Report ---
BILATERAL DIGITAL SCREENING MAMMOGRAM 3D/2D: 06/06/2022 CLINICAL: Routine screening. Family history of breast cancer. Comparison is made to exams dated: 02/26/2020 mammogram, 09/06/2018 mammogram, 01/15/2014 mammogram, an d 09/29/2012 mammogram - [facility]. Both breasts are heterogeneously dense, which may obscure small masses (category c / 51-75% glandular tissue). No significant masses, calcifications, or other findings are seen in either breast. There has been no significant interval change. IMPRESSION: NEGATIVE There is no mammographic evidence of malignancy. A 1 year screening mammogram is recommended. This exam was interpreted at Station ID: [id number]. NOTE: For mammograms, a report in lay terms will be sent to the patient. Approximately 15% of breast malignancies will not be visualized mammographically. In the management of a palpable breast mass, a negative mammogram must not discourage biopsy of a clinically suspicious lesion. Electronically Signed By: Ananth Caceres M.D., jr/william:06/06/2022 15:20:29 ACR BI-RADS Category 1: Negative 3341F PARENCHYMAL PATTERN: (D) - The breast(s) demonstrate(s) heterogeneously dense fibroglandular parenchy ma. BI-RADS CATEGORY: (1) - 1 RECOMMENDATION: (ANNUAL) - Recommend routine annual screening mammography. [id number] 1 year screening LATERALITY: (B)
== END 2022-06-06 14:32 | disposition home or self-care (01) ==
LOC: DI 14:31
DX: Z12.31 Encounter for screening mammogram for malignant neoplasm of breast (principal); Z80.3 Family history of malignant neoplasm of breast

== ENCOUNTER 2022-07-01 16:02 | Outpatient (CLI) | payer MEDICARE, OTHER ==
--- NOTE | 2022-07-01 17:40 | XRAY Report ---
PROCEDURE: Hip 2 View LT INDICATIONS: LEFT HIP FIXATION TECHNIQUE: An AP view of the pelvis and a crosstable lateral view of the left hip were acquired. COMPARISON: 12/02/2021 FINDINGS: Bones: Remote ORIF of the femoral neck with 3 cannulated screws. No evidence of hardware failure or loosening. No evidence of avascular necrosis. No fractures or dislocations. No suspicious bony lesio ns. The visualized pelvic ring appears intact. Soft tissues: No suspicious soft tissue calcifications or masses. IMPRESSION: Expected appearance post ORIF. Reviewed by: Abdoul Nair MD on 07/01/2022 5:39 PM PST Approved by: Abdoul Nair MD on 07/01/2022 5:39 PM PST Station ID: [id number]
== END 2022-07-01 16:05 | disposition home or self-care (01) ==
LOC: DI.WOS 16:02
PROVIDERS: ATTEND Orthopaedic Surgery
DX: S72.012D Unspecified intracapsular fracture of left femur, subsequent encounter for closed fracture with routine healing (principal)

== ENCOUNTER 2022-07-02 15:45 | Outpatient (CLI) | payer MEDICARE, OTHER | END 2022-07-02 23:59 | disposition home or self-care (01) | LOC: LAB 15:45 | PROVIDERS: ATTEND Internal Medicine | DX: N39.0 Urinary tract infection, site not specified (principal) | CPT/HCPCS: 87086 ==

== ENCOUNTER 2022-07-07 16:02 | Outpatient (CLI) | payer MEDICARE, OTHER ==
--- NOTE | 2022-07-07 22:09 | XRAY Report ---
PROCEDURE: Hip 2 View LT INDICATIONS: LEFT HIP FRACTURE, NEW FALL 07.04.22 TECHNIQUE: 2 views of the hip were acquired. COMPARISON: Hip x-ray to 713 FINDINGS: Bones: Left femoral pin fixation. Hardware is intact without evidence of hardware fracture or peripro sthetic lucency to suggest loosening. No suspicious bony lesions. The visualized pelvic ring appears intact. Soft tissues: No suspicious soft tissue calcifications or masses. IMPRESSION: No visualized acute fracture or dislocation. However, occult injury cannot be excluded. Recommend vik rt interval imaging follow-up in 7-10 days as clinically indicated for additional evaluation. Reviewed by: Betsy Crowe MD on 07/07/2022 10:08 PM PST Approved by: Betsy Crowe MD on 07/07/2022 10:08 PM PST Station ID: [id number]
== END 2022-07-07 16:05 | disposition home or self-care (01) ==
LOC: DI.WOS 16:02
PROVIDERS: ATTEND Orthopaedic Surgery
DX: S72.042 Displaced fracture of base of neck of left femur (principal)

== ENCOUNTER 2022-11-05 14:30 | Outpatient (CLI) | payer MEDICARE, OTHER | END 2022-11-05 14:45 | disposition home or self-care (01) | LOC: LAB.N 14:30 | PROVIDERS: ATTEND Registered Nurse | DX: R82.79 Other abnormal findings on microbiological examination of urine (principal) | CPT/HCPCS: 87086; 87181 ==

== ENCOUNTER 2022-11-20 08:00 | Outpatient (CLI) | payer MEDICARE, OTHER | END 2022-11-20 23:59 | disposition home or self-care (01) | LOC: LAB.N 08:00 | PROVIDERS: ATTEND Specialist | DX: R82.79 Other abnormal findings on microbiological examination of urine (principal) | CPT/HCPCS: 87077; 87086; 87181 ==

== ENCOUNTER 2023-01-14 08:00 | Outpatient (CLI) | payer MEDICARE, OTHER ==
[2023-01-14 16:08] LABS: BILIRUBIN,URINE NEGATIVE (NEGATIVE); GLUCOSE, URINE (UA) NEGATIVE (NEGATIVE); KETONES,URINE (UA) NEGATIVE (NEGATIVE); LEUKOCYTE ESTERASE, URINE LARGE (NEGATIVE); NITRITE,URINE POSITIVE (NEGATIVE); OCCULT BLOOD,URINE TRACE-INTA (NEGATIVE); PROTEIN,URINE NEGATIVE (NEGATIVE); UROBILINOGEN,URINE 0.2 (NORMAL) E.U./dL (NORMAL)
[2023-01-14 16:09] LABS: CLARITY,URINE HAZY (CLEAR)
[2023-01-14 16:21] LABS: BACTERIA,URINE Many /HPF (None Seen); RBC,URINE 0-5 /HPF (0-5); SQUAMOUS EPITHELIAL CELL,UR FEW Squamous (<= Few); WBC,URINE >25 /HPF (0-5)
== END 2023-01-14 23:59 | disposition home or self-care (01) ==
LOC: LAB 08:00
PROVIDERS: ATTEND Urology
DX: N39.0 Urinary tract infection, site not specified (principal)
CPT/HCPCS: 81001; 87086; 87181

== ENCOUNTER 2023-02-04 18:03 | Emergency (ER) | payer MEDICARE, OTHER ==
[2023-02-04] MEDS ORDERED: GLUCAGON 1 MG/ML VIAL IVP STA (18:43)
--- NOTE | 2023-02-04 18:44 | ED Physician Documentation ---
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 HEENT: Tonsil/Adenoidectomy - Present Medications Home Medications: Ambulatory Orders Medication Instructions Recorded Confirmed Levothyroxine [Synthroid] 75 mcg PO QDAC 06/03/17 07/12/21 Raloxifene [Evista] 60 mg PO DAILY 06/03/17 07/12/21 buPROPion HCL [Bupropion HCl Sr] 100 mg PO DAILY 06/03/17 07/12/21 Baclofen [Lioresal] 10 mg PO BID PRN 07/12/21 07/12/21 Alendronate [Fosamax] 70 mg PO Q7D #4 tablet 07/14/21 Aspirin Chewable [St [place]y 81 mg PO BID 42 Days #84 tablet 07/14/21 Aspirin] Calcium Carbonate [Tums (Calcium 500 mg PO BID #30 tablet 07/14/21 Carbonate 500mg)] Cholecalciferol [Vitamin D3] 25 mcg PO DAILY #30 tablet 07/14/21 - Allergies Allergies/Adverse Reactions: Allergies Allergy/AdvReac Type Severity Reaction Status Date / Time codeine Allergy Unknown Verified 02/04/23 18:08 mercury (elemental) Allergy Rash Verified 02/04/23 18:08 Sulfa (Sulfonamide Allergy Hives Verified 02/04/23 18:08 Antibiotics) - Social History Does the pt smoke?: No Smoking Status: Never smoker Does the pt drink ETOH?: No Does the pt have substance abuse?: No - Immunizations Immunizations are current?: Yes - POLST Patient has POLST: No PD ED PE NORMAL - Vitals Vital signs reviewed: Yes - General General: Alert and oriented X 3, No acute distress - HEENT HEENT: Other (Phonation is normal and I am unable to see a foreign body.) - Neuro Neuro: Alert and oriented X 3, Normal speech Results - Vitals Vitals: Vital Signs - 24 hr 02/04/23 18:08 Temperature 36.7 C Heart Rate 67 Respiratory 16 Rate Blood Pressure 150/70 H O2 Saturation 96 Oxygen O2 Source [With Activity] Room air O2 Source Room air - Rads (name of study) CT neck negative, other than thyroid calcification Relevant Findings:: Final report received, EMP independent interpretation of test PD Medical Decision Making - ED course ED course: She presents with feeling like there is a foreign body in her throat. That said she is phonating normally, managing her secretions, and with an otherwise normal exam. A CT was done and not showing a foreign body. She was still feeling like there was one there but again her exam was still normal and recheck so advised to follow-up with ENT tomorrow if not better. Departure - Departure Disposition: 01 Home, Self Care Clinical Impression: Foreign body sensation in throat Condition: Good Record reviewed to determine appropriate education?: Yes Instructions: ED Foreign Body Esophageal Rslv Comments: CT of your neck shows no foreign bodies making a retained foreign body in your throat very unlikely, but not impossible. If you are still having this sensation tomorrow, reasonable to follow-up with an ear nose throat physician for evaluation, the closest to you is in [place], the phone number is [phone]. Call for appointment tomorrow unless better. Return if worse. There was an incidental thyroid cyst, discuss this with your primary care physician. Forms: PCP List
--- NOTE | 2023-02-04 20:00 | CT Report ---
PROCEDURE: SOFT TISSUE NECK WO INDICATIONS: pill fb TECHNIQUE: Non-contrast 3.0 mm axial sections acquired from the sella to the aortic arch. Additiona l oblique axial 3.0 mm sections acquired through the pharynx. 3 mm thick coronal reformats were gene rated. For radiation dose reduction, the following was used: automated exposure control, adjustment of mA and/or kV according to patient size. COMPARISON: None. FINDINGS: Image quality: Excellent. Lymph nodes: No enlarged lymph nodes seen throughout the neck. Vessels: Non-opacified vessels appear normal in caliber. Neck spaces: The oropharynx, nasopharynx, and pharynx demonstrate no mucosal lesions. The vocal cor ds, false vocal cords, pyriform sinuses, epiglottis, vallecula, and tongue base all appear normal. E xtramucosal spaces appear unremarkable. Glands: The parotid and submandibular glands appear normal, without stones. Thyroid gland on the ri ght demonstrates prominent calcification. Miscellaneous: Visualized brain and orbits appear normal. Lung apices appear clear. Superficial so ft tissues appear normal. IMPRESSION: No visualized foreign body. Calcification within the right thyroid lobe overall nonspecific. As clinically indicated, further ambreen luation with ultrasound may be obtained on a nonemergent basis. Reviewed by: Betsy Crowe MD on 02/04/2023 7:59 PM PDT Approved by: Betsy Crowe MD on 02/04/2023 7:59 PM PDT Station ID: [id number]
[2023-02-04 20:19] VITALS: BP 147/56; O2SAT 98
== END 2023-02-04 20:11 | disposition home or self-care (01) ==
LOC: ED 18:03
DX: R09.89 Other specified symptoms and signs involving the circulatory and respiratory systems (principal); G20 Parkinson's disease; E03.9 Hypothyroidism, unspecified; Z79.899 Other long term (current) drug therapy; Z79.82 Long term (current) use of aspirin
CPT/HCPCS: 36415; 96374; 99283

== ENCOUNTER 2023-07-02 14:06 | Outpatient (CLI) | payer MEDICARE, OTHER ==
--- NOTE | 2023-07-03 12:05 | Mammography Report ---
BILATERAL DIGITAL SCREENING MAMMOGRAM 3D/2D: 07/02/2023 CLINICAL: Routine screening. Comparison is made to exams dated: 02/26/2020 mammogram, 06/06/2022 mammogram, 09/06/2018 mammogram, an d 01/15/2014 mammogram - [facility]. Both breasts are heterogeneously dense, which may obscure small masses (category c / 51-75% glandular tissue). No significant masses, calcifications, or other findings are seen in either breast. There has been no significant interval change. IMPRESSION: NEGATIVE There is no mammographic evidence of malignancy. A 1 year screening mammogram is recommended. This exam was interpreted at Station ID: [id number]. NOTE: For mammograms, a report in lay terms will be sent to the patient. Approximately 15% of breast malignancies will not be visualized mammographically. In the management of a palpable breast mass, a negative mammogram must not discourage biopsy of a clinically suspicious lesion. Electronically Signed By: Clay correa/william:07/02/2023 15:14:12 letter sent: No_Letter ACR BI-RADS Category 1: Negative 3341F PARENCHYMAL PATTERN: (D) - The breast(s) demonstrate(s) heterogeneously dense fibroglandular parfabi frazier. BI-RADS CATEGORY: (1) - 1 Mammogram [id number] 1 year screening LATERALITY: (B)
== END 2023-07-02 14:07 | disposition home or self-care (01) ==
LOC: DI 14:06
DX: Z12.31 Encounter for screening mammogram for malignant neoplasm of breast (principal); R92.333 Mammographic heterogeneous density, bilateral breasts

== ENCOUNTER 2023-09-10 08:00 | Outpatient (CLI) | payer MEDICARE, OTHER | END 2023-09-10 23:59 | disposition home or self-care (01) | LOC: LAB 08:00 | PROVIDERS: ATTEND Physician Assistant Medical | DX: N39.0 Urinary tract infection, site not specified (principal) | CPT/HCPCS: 87086; 87181 ==

== ENCOUNTER 2024-01-06 08:00 | Outpatient (CLI) | payer MEDICARE, OTHER | END 2024-01-06 23:59 | disposition home or self-care (01) | LOC: LAB.N 08:00 | PROVIDERS: ATTEND Physician Assistant | DX: N39.0 Urinary tract infection, site not specified (principal) | CPT/HCPCS: 87086 ==